=== PATIENT | male | born 1960 | race Caucasian/White ===

== ENCOUNTER 2023-09-24 13:35 | Emergency (ER) | payer BC ==
--- NOTE | 2023-09-24 14:08 | ERPHSYRPT ---
- History of Present Illness Time Seen by Provider: 09/24/23 14:08 Source: patient Exam Limitations: no limitations Physician History: The patient presents after a fall, landing directly on the side of his face and shoulder. He reports pain in the neck and shoulder, but denies any prior neck injuries. The patient describes the pain as intermittent, occurring with certain movements. He denies any weakness or pain with range of motion exercises. The patient also reports a sensation of 'something sitting on his chest' and a 'twisting' sensation between the shoulder blades. He denies any shortness of breath or chest pain. Occurred: just prior to arrival Reason for Fall: slipped Injuries/Pain Location: head, face, neck Loss of Consciousness: no loss of consciousness Quality: sharpness, throbbing Severity of Pain-Max: moderate Severity of Pain-Current: moderate Modifying Factors: Worsens With: movement Associated Symptoms (Fall): headache, neck pain, No confusion, No dizziness, No nausea, No ringing in ears, No slurred speech, No trouble walking, No vision changes Allergies/Adverse Reactions: Sulfa (Sulfonamide Antibiotics) Allergy (Mild, Verified 09/24/23 14:13) Rash morphine Adverse Reaction (Mild, Verified 09/24/23 14:13) Nausea Home Medications: Naproxen Sodium [Anaprox Ds] 550 mg PO DAILY PRN 09/07/13 [History] allopurinoL [Zyloprim] 300 mg PO DAILY 09/07/13 [History] Hx Tetanus, Diphtheria Vaccination/Date Given: Yes Hx Influenza Vaccination/Date Given: Yes (2014) Hx Pneumococcal Vaccination/Date Given: No - Review of Systems All Other Systems: Reviewed and Negative - Past Medical History Pertinent Past Medical History: Yes Neurological History: Other ENT History: Other Cardiac History: No Pertinent History Respiratory History: No Pertinent History Endocrine Medical History: No Pertinent History Musculoskeletal History: No Pertinent History GI Medical History: Other History: No Pertinent History Psycho-Social History: No Pertinent History Male Reproductive Disorders: No Pertinent History Other Medical History: L PHANTOM LIMB PAIN, FRACTURED L ANKLE IN HIGH SCHOOL, LATER HE STEPPED INTO A HOLE AND REINJURED THE LEG, EVENTUALLY DEVELOPED BONE NECROSIS. HE HAD 8-9 SURGERIES ON THE L LE. 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, no injury - Social History Smoking Status: Never smoker Exposure to second hand smoke: No Drug Use: none Patient Lives Alone: No - Nursing Vital Signs Nursing Vital Signs: Initial Vital Signs Blood Pressure 130/66 09/24/23 14:01 Pain Scale Pain Intensity 5 - [place] Coma Score Best Eye Response ([place]): (4) open spontaneously Best Verbal Response ([place]): (5) oriented Best Motor Response ([place]): (6) obeys commands [place] Total: 15 - Physical Exam General Appearance: no apparent distress Head Injury: lacerations (small superfical lac 1cm left zygomatic arch), tenderness Eye Exam: PERRL/EOMI, eyes nml inspection ENT Exam: airway nml, nml ext.inspection Neck Exam: supple, trachea midline, normal alignment, limited range of motion, muscle spasm, paraspinous muscle tender, pain on movement of neck, tender lateral, mid-line tenderness Respiratory/Chest Exam: normal breath sounds, No respiratory distress Neurologic Exam: alert, oriented x 3, cooperative, lead web developer II-XII nml as tested, normal mood/affect, nml cerebellar function, nml station & gait - Course Nursing assessment & vital signs reviewed: Yes - CT Exams Head CT Interpretation: Negative, Tele-radiologist Report Cervical Spine CT Interpretation: Tele-radiologist Report, No Fracture Maxillofacial Bones CT Interpretation: Tele-radiologist Report, Other (old spine of maxilla fracture) - Progress Progress: unchanged Medical Desision Making - Diagnostic Testing Diagnostic test were ordered, analyzed, and reviewed by me: Yes Radiological Interpretation: Interpreted by me, Reviewed by me, Teleradiologist Report - Risk of complications Low Risk: Low risk of morbidity from additional dx testing or treatment - Departure Departure Disposition: Home Clinical Impression: Fall, Facial trauma, Head trauma, Superficial laceration of face Condition: Good Critical Care Time: No Referrals: LEODAN URIARTE NP [Primary Care Provider] - Follow up/PCP as directed Instructions: Wound Care (DC), Head injury in adults
[2023-09-24 14:10] VITALS: TEMP 97
--- NOTE | 2023-09-24 16:24 | XRAY ---
Indication: Pain, headache, and abrasion following fall. Multiple contiguous axial images obtained through the head without contrast. Comparison: None Normal appearing brain parenchyma, ventricles, and bony calvarium for patient's age. Visualized paranasal sinuses and mastoid air cells are clear. Impression: Normal CT head without contrast exam.
--- NOTE | 2023-09-24 16:28 | XRAY ---
Indication: Pain, headache, and abrasion following fall. Multiple contiguous axial images obtained through the facial bones. Sagittal and coronal reformatted images obtained. Comparison: None A few bilateral dental implants produces beam artifact. Spine of maxilla demonstrates very tiny tip fracture of uncertain chronicity. No other acute fracture, suspicious bony lesions, or osseous destructive process. Orbits including roof, jaimes, and floors intact. Mild mucosal thickening right sphenoid and lesser degree right maxillary sinuses. Remaining paranasal sinuses and nasal passages are clear. Mild nasal septal deviation to the left. Visualized noncontrasted soft tissues are unremarkable. CT head and CT cervical spine reported separately. Impression: Beam artifact. Tiny tip fracture spine of maxilla of uncertain chronicity. Incidental mild paranasal sinus disease and mild nasal septal deviation. Remaining CT facial bones negative.
--- NOTE | 2023-09-24 16:36 | XRAY ---
Indication: Pain, headache, and abrasion following fall. Multiple contiguous axial images obtained through the cervical spine. Sagittal and coronal reformatted images obtained. Comparison: None Axial images negative for acute fracture, suspicious bony lesions, or spinal canal stenosis. Mild/moderate C5-C7 degenerative endplate spurring and mild/moderate multilevel bilateral degenerative facet hypertrophy. Sagittal and coronal reformatted images demonstrates minimal dextroscoliosis centered at C5 and C6-C7 disc space narrowing. No acute compression fracture, subluxation, or jumped facet. Normal appearing craniocervical junction. Visualized noncontrasted soft tissues demonstrates minimal right carotid calcifications. CT head and CT facial bones reported separately. Impression: Nonacute CT cervical spine with chronic features.
[2023-09-24 16:44] VITALS: BP 128/87; PULSE 76; RESP 16; O2SAT 98
== END 2023-09-24 16:48 | disposition home or self-care (01) ==
LOC: ED 13:35
DX: S01.412A Laceration without foreign body of left cheek and temporomandibular area, initial encounter (principal); S09.93XA Unspecified injury of face, initial encounter; S09.90XA Unspecified injury of head, initial encounter; W19.XXXA Unspecified fall, initial encounter; Z79.899 Other long term (current) drug therapy
CPT/HCPCS: 70450; 70486; 72125; 99283

== ENCOUNTER 2023-10-12 16:39 | Observation (INO) | payer BC ==
[2023-10-12] MEDS ORDERED: VANCOMYCIN 1 GRAM/200 ML BAG 1 GM/200 ML PIGGYBACK IV ONE (18:14)
[2023-10-12] MEDS ORDERED: Sodium Chloride 0.9% 1000 ML 1,000 ML ONE (18:14)
[2023-10-12] MEDS ORDERED: Tylenol #3 Tablet ONE (18:14)
[2023-10-12] MEDS: Tylenol #3 Tablet PO ONE (18:15)
[2023-10-12] MEDS ORDERED: PIPERACILLIN/TAZOBACTAM IV ONE ×2 (18:39→18:40)
[2023-10-12] MEDS ORDERED: Sodium Chloride 100ML MINI-BAG PLUS 100 ML IV ONE (18:40)
[2023-10-12 18:41] LABS: Lactic Acid 2.7 (0.4-2.0); VBG BASE EXCESS -3.6 (-2.0-2.0); VBG CARBOXYHEMOGLOBIN 2.3 % T HGB (0.0-6.9); VBG HCO3- 19.9 meq/L (22-28); VBG HEMOGLOBIN 10.9; VBG O2 SATURATION 68.3 (95-100); VBG POTASSIUM 3.3 (3.5-5.1); VBG pH 7.43 (7.32-7.42)
[2023-10-12] MEDS: VANCOMYCIN 1 GRAM/200 ML BAG 1 GM/200 ML PIGGYBACK IV ONE (18:42)
[2023-10-12] MEDS: PIPERACILLIN/TAZOBACTAM 3.375 GM in Sodium Chloride 100ML MINI-BAG PLUS 100 ML IV ONE (18:42)
[2023-10-12] MEDS: Sodium Chloride 0.9% 1000 ML 1,000 ML IV STA (18:43)
[2023-10-12 18:53] LABS: Absolute Neutrophil Ct (ANC) 11.01 x10^3/uL (1.78-5.38); BASOPHIL % 0.3 % (0.2-1.2); Basophil (Absolute #) 0.04 x10^3/uL (0.01-0.08); Eosinophil % 1.2 % (0.8-7.0); Eosinophil (Absolute #) 0.17 x10^3/uL (0.04-0.54); Hemoglobin 10.1 g/dL (13.7-17.5); IMMATURE GRAN % 2.1 % (0.001-0.429); Lymphocyte (Absolute #) 1.58 x10^3/uL (1.32-3.57); Lymphocytes % 11.2 % (21.8-53.1); Mean Corpuscular Hemoglobin 23.9 pg (25.7-32.2); Mean Corpuscular Hgb Concent. 30.6 g/dL (32.3-36.5); Mean Platelet Volume 9.3 fL (9.4-12.4); Monocyte (Absolute #) 0.96 x10^3/uL (0.30-0.82); Monocytes % 6.8 % (5.3-12.2); Neutrophil % 78.4 % (34.0-67.9); Platelet Count 618 x10^3/uL (163-337); Red Blood Count 4.23 x10^6/uL (4.63-6.08); Red Cell Distribution Width 16.6 % (11.6-14.4); White Blood Count 14.1 x10^3/uL (4.23-9.07)
[2023-10-12 19:04] LABS: ALBUMIN 3.1 g/dL (3.5-5.0); ANION GAP 14.4 MEQ/L (5-15); BILIRUBIN,TOTAL 0.5 mg/dL (0.2-1.3); Calcium 8.4 mg/dL (8.4-10.2); Creatinine 1 1.37 mg/dL (0.66-1.25); EST GLOMERULAR FILTRATION RATE 57.6 ML/MIN; Total Protein 6.5 g/dL (6.3-8.2)
[2023-10-12 19:21] LABS: Potassium 2.9 mmol/L (3.5-5.1)
--- NOTE | 2023-10-12 19:24 | ERPHSYRPT ---
- History of Present Illness Time Seen by Provider: 10/12/23 19:23 Patient Subjective Stated Complaint: C/O pain and swelling to RLE for 2-3 week Triage Nursing Assessment: Patient ambulated back to ER with a cane. He is alert and oriented. RLE is red, warm, swollen. Sore noted to sole of foot; patient states Dr. Villalobos is treating this. No SOB. Allergies/Adverse Reactions: Sulfa (Sulfonamide Antibiotics) Allergy (Mild, Verified 10/12/23 17:12) Rash morphine Adverse Reaction (Mild, Verified 10/12/23 17:12) Nausea Home Medications: Pregabalin 300 mg PO BID 10/12/23 [History] Hx Tetanus, Diphtheria Vaccination/Date Given: Yes Hx Influenza Vaccination/Date Given: No Hx Pneumococcal Vaccination/Date Given: No Immunizations Up to Date: Yes Travel Risk - International Travel Have you traveled outside of the country in past 3 weeks: No - Emerging Infectious Disease Are you exhibiting symptoms associated with any current EIDs: No - Past Medical History Pertinent Past Medical History: Yes Neurological History: Other ENT History: Other Cardiac History: No Pertinent History Respiratory History: No Pertinent History Endocrine Medical History: Diabetes Type II Musculoskeletal History: No Pertinent History GI Medical History: Other History: No Pertinent History Psycho-Social History: No Pertinent History Male Reproductive Disorders: No Pertinent History Other Medical History: L PHANTOM LIMB PAIN, [place]ARCOT - Past Surgical History Past Surgical History: Yes Neuro Surgical History: No Pertinent History Cardiac: No Pertinent History Respiratory: No Pertinent History Gastrointestinal: No Pertinent History Genitourinary: No Pertinent History Musculoskeletal: Amputation, Other Male Surgical History: No Pertinent History Other Surgical History: LEFT BKA - Social History Smoking Status: Never smoker Exposure to second hand smoke: No Drug Use: none Patient Lives Alone: No - Social Determinants of Health Will the patient participate in the screening: Declined to provide - Nursing Vital Signs Nursing Vital Signs: Initial Vital Signs Temperature 99 F 10/12/23 17:05 Pulse Rate 83 10/12/23 17:05 Respiratory Rate 24 10/12/23 17:05 Blood Pressure 120/78 10/12/23 17:05 O2 Sat by Pulse Oximetry 96 10/12/23 17:05 Pain Scale Pain Intensity 10 - Physical Exam SpO2: 100 Ordered Tests: Active Orders 24 hr Category Date Time Status IV Insertion STAT Care 10/12/23 18:08 Active IV Insertion-2nd Peripheral STAT Care 10/12/23 18:47 Active HEAD WITHOUT CONTRAST [CT] Stat Exams 10/12/23 18:11 Completed VENOUS UNILAT/LIMITED EXTREMIT [US] Stat Exams 10/12/23 18:07 Taken BLOOD CULTURE Stat Lab 10/12/23 18:50 Received CBC W DIFF Stat Lab 10/12/23 18:50 Completed CMP Stat Lab 10/12/23 18:50 Completed Lactic Acid Stat Lab 10/12/23 18:35 Completed PROCALCITONIN Stat Lab 10/12/23 18:50 Completed UA W/RFX UR CULTURE Stat Lab 10/12/23 18:08 Ordered VBG [VENOUS BLOOD GAS] Stat Lab 10/12/23 18:35 Completed Medication Summary Discontinued Medications Generic Name Dose Route Start Last Admin Trade Name Freq PRN Reason Stop Dose Admin Acetaminophen/Codeine Phosphate 2 tab 10/12/23 18:10 10/12/23 18:15 Codeine Phosphate/Apap #3 PO 10/12/23 18:11 2 tab STAT ONE Administration Acetaminophen/Codeine Phosphate Confirm 10/12/23 18:14 Codeine Phosphate/Apap #3 Administered 10/12/23 18:15 Dose 2 tab .ROUTE .STK-MED ONE Sodium Chloride 1,000 mls @ 999 mls/hr 10/12/23 18:08 10/12/23 19:44 Sodium Chloride 0.9% 1000 Ml IV 10/12/23 19:08 Infused .Q1H1M STA Infusion Piperacillin Sod/Tazobactam 100 mls @ 200 mls/hr 10/12/23 18:08 10/12/23 18:42 Sod 3.375 gm/ Sodium Chloride IV 10/12/23 18:37 200 mls/hr STAT ONE Administration Vancomycin HCl 1 gm in 200 mls @ 125 mls/hr 10/12/23 18:08 10/12/23 20:18 Vancomycin 1 Gram/200 Ml Bag IV 10/12/23 19:43 Infused STAT ONE Infusion Sodium Chloride Confirm 10/12/23 18:14 Sodium Chloride 0.9% 1000 Ml Administered 10/12/23 18:15 Dose 1,000 mls @ ud .ROUTE .STK-MED ONE Vancomycin HCl Confirm 10/12/23 18:14 Vancomycin 1 Gram/200 Ml Bag Administered 10/12/23 18:15 Dose 1 gm in 200 mls @ ud IV .STK-MED ONE Sodium Chloride Confirm 10/12/23 18:40 Sodium Chloride 100ml Mini-Bag Plus Administered 10/12/23 18:41 Dose 100 mls @ ud IV .STK-MED ONE Piperacillin Sod/Tazobactam Sod Confirm 10/12/23 18:39 Piperacillin/Tazobactam Sodium 3.375 Gm Vial Administered 10/12/23 18:40 Dose 3.375 gm IV .STK-MED ONE Piperacillin Sod/Tazobactam Sod Confirm 10/12/23 18:40 Piperacillin/Tazobactam Sodium 3.375 Gm Vial Administered 10/12/23 18:41 Dose 3.375 gm IV .STK-MED ONE Potassium Chloride 40 meq 10/12/23 19:23 10/12/23 19:42 Potassium Chloride Tab 10 Meq Tab PO 10/12/23 19:24 40 meq STAT ONE Administration Potassium Chloride Confirm 10/12/23 19:38 Potassium Chloride Tab 10 Meq Tab Administered 10/12/23 19:39 Dose 40 meq .ROUTE .STK-MED ONE Lab/Rad Data: Laboratory Result Diagrams 10/12/23 18:50 10/12/23 18:50 Laboratory Results 10/12/23 10/12/23 10/12/23 Range/Units 18:50 18:50 18:50 WBC 14.1 H (4.23-9.07) x10^3/uL RBC 4.23 L (4.63-6.08) x10^6/uL Hgb 10.1 L (13.7-17.5) g/dL Hct 33.0 L (40.1-51.0) % MCV 78.0 L (79.0-92.2) fL MCH 23.9 L (25.7-32.2) pg MCHC 30.6 L (32.3-36.5) g/dL RDW 16.6 H (11.6-14.4) % Plt Count 618 H (163-337) x10^3/uL MPV 9.3 L (9.4-12.4) fL Gran % 78.4 H (34.0-67.9) % Immature Gran % (Auto) 2.1 H (0.001-0.429) % Nucleat RBC Rel Count 0.0 (0.00-0.2) % Eos # (Auto) 0.17 (0.04-0.54) x10^3/uL Immature Gran # (Auto) 0.30 H (0.001-0.031) x10^3u/L Absolute Lymphs (auto) 1.58 (1.32-3.57) x10^3/uL Absolute Monos (auto) 0.96 H (0.30-0.82) x10^3/uL Absolute Nucleated RBC 0.00 (0.00-0.012) x10^3u/L Lymphocytes % 11.2 L (21.8-53.1) % Monocytes % 6.8 (5.3-12.2) % Eosinophils % 1.2 (0.8-7.0) % Basophils % 0.3 (0.2-1.2) % Absolute Granulocytes 11.01 H (1.78-5.38) x10^3/uL Basophils # 0.04 (0.01-0.08) x10^3/uL pO2/FiO2 Ratio % VBG pH (7.32-7.42) VBG pCO2 at Pat Temp (42-55) mm/Hg VBG pO2 at Pat Temp (25-40) mm/Hg VBG HCO3 (22-28) meq/L VBG O2 Sat ([place]use[place]in) (95-100) VBG Base Excess (-2.0-2.0) VBG Hemoglobin VBG Carboxyhemoglobin (0.0-6.9) % T HGB POC Potassium (3.5-5.1) Sodium 137 (135-145) mmol/L Potassium 2.9 L* (3.5-5.1) mmol/L Chloride 106 (98-107) mmol/L Carbon Dioxide 19 L (22-30) mmol/L Anion Gap 14.4 (5-15) MEQ/L BUN 19 (9-20) mg/dL Creatinine 1.37 H (0.66-1.25) mg/dL Estimated GFR 57.6 ML/MIN Glucose 138 H (74-106) mg/dL Lactic Acid (0.4-2.0) Calcium 8.4 (8.4-10.2) mg/dL Total Bilirubin 0.50 (0.2-1.3) mg/dL AST 64 H (17-59) U/L ALT 41 (0-50) U/L Alkaline Phosphatase 256 H (38-126) U/L Serum Total Protein 6.5 (6.3-8.2) g/dL Albumin 3.1 L (3.5-5.0) g/dL Procalcitonin 0.590 H (0.030-0.080) ng/mL 10/12/23 Range/Units 18:35 WBC (4.23-9.07) x10^3/uL RBC (4.63-6.08) x10^6/uL Hgb (13.7-17.5) g/dL Hct (40.1-51.0) % MCV (79.0-92.2) fL MCH (25.7-32.2) pg MCHC (32.3-36.5) g/dL RDW (11.6-14.4) % Plt Count (163-337) x10^3/uL MPV (9.4-12.4) fL Gran % (34.0-67.9) % Immature Gran % (Auto) (0.001-0.429) % Nucleat RBC Rel Count (0.00-0.2) % Eos # (Auto) (0.04-0.54) x10^3/uL Immature Gran # (Auto) (0.001-0.031) x10^3u/L Absolute Lymphs (auto) (1.32-3.57) x10^3/uL Absolute Monos (auto) (0.30-0.82) x10^3/uL Absolute Nucleated RBC (0.00-0.012) x10^3u/L Lymphocytes % (21.8-53.1) % Monocytes % (5.3-12.2) % Eosinophils % (0.8-7.0) % Basophils % (0.2-1.2) % Absolute Granulocytes (1.78-5.38) x10^3/uL Basophils # (0.01-0.08) x10^3/uL pO2/FiO2 Ratio 21.0 % VBG pH 7.43 H (7.32-7.42) VBG pCO2 at Pat Temp 30 L (42-55) mm/Hg VBG pO2 at Pat Temp 39 (25-40) mm/Hg VBG HCO3 19.9 L (22-28) meq/L VBG O2 Sat ([place]in) 68.3 L (95-100) VBG Base Excess -3.6 L (-2.0-2.0) VBG Hemoglobin 10.9 VBG Carboxyhemoglobin 2.3 (0.0-6.9) % T HGB POC Potassium 3.3 L (3.5-5.1) Sodium (135-145) mmol/L Potassium (3.5-5.1) mmol/L Chloride (98-107) mmol/L Carbon Dioxide (22-30) mmol/L Anion Gap (5-15) MEQ/L BUN (9-20) mg/dL Creatinine (0.66-1.25) mg/dL Estimated GFR ML/MIN Glucose (74-106) mg/dL Lactic Acid 2.7 H (0.4-2.0) Calcium (8.4-10.2) mg/dL Total Bilirubin (0.2-1.3) mg/dL AST (17-59) U/L ALT (0-50) U/L Alkaline Phosphatase (38-126) U/L Serum Total Protein (6.3-8.2) g/dL Albumin (3.5-5.0) g/dL Procalcitonin (0.030-0.080) ng/mL - Progress Progress Note: 10/12/23 19:24 I assumed care for pt from Dr Vaughn at 1900. 10/12/23 19:53 CT head: Unremarkable non-contrast enhanced CT study for the brain. No evidence of post-traumatic lesion. 10/12/23 19:53 lower extremity duplex US reportedly negative for DVT 10/12/23 20:25 discussed admission w/ Dr Murray who is willing to accept 20:25 - Departure Referrals: LEODAN URIARTE NP [Primary Care Provider] - Follow up/PCP as directed
--- NOTE | 2023-10-12 19:27 | ERPHSYRPT ---
- History of Present Illness Source: patient Exam Limitations: no limitations Patient Subjective Stated Complaint: C/O pain and swelling to RLE for 2-3 week Triage Nursing Assessment: Patient ambulated back to ER with a cane. He is alert and oriented. RLE is red, warm, swollen. Sore noted to sole of foot; patient states Dr. Villalobos is treating this. No SOB. Timing/Duration: week(s) Quality: painful Severity: moderate Location: extremities (RLE) Possible Causes: no cause identified Associated Symptoms: change in skin texture, edema, No blisters, No difficulty breathing, No fever, No rash Hx Tetanus, Diphtheria Vaccination/Date Given: Yes Hx Influenza Vaccination/Date Given: No Hx Pneumococcal Vaccination/Date Given: No Immunizations Up to Date: Yes <BEE KLEIN - Last Filed: 10/12/23 19:22> <PAYTON LI - Last Filed: 10/12/23 20:28> - History of Present Illness Time Seen by Provider: 10/12/23 18:30 Physician History: The patient, with a history of head trauma and an infected foot, presents with cognitive issues and concerns about his foot. He reports periods of confusion and difficulty with word recall since the head trauma. He describes instances at work where he was unable to recall his own name. He also reports a loss of appetite and dizziness. He has been taking Longerra (7.5mg) for an unspecified condition, but believes the dose may be too high. Regarding his foot, the patient reports a history of infection, with weeping for the past couple of weeks and swelling for about a month. He was on IV antibiotics, which he stopped about a week ago. He also has a history of a fused ankle, which has resulted in him walking on the outside of his foot and developing a callus. (BEE KLEIN) Allergies/Adverse Reactions: Sulfa (Sulfonamide Antibiotics) Allergy (Mild, Verified 10/12/23 17:12) Rash morphine Adverse Reaction (Mild, Verified 10/12/23 17:12) Nausea Home Medications: Pregabalin 300 mg PO BID 10/12/23 [History] Travel Risk - International Travel Have you traveled outside of the country in past 3 weeks: No - Emerging Infectious Disease Are you exhibiting symptoms associated with any current EIDs: No <BEE KLEIN - Last Filed: 10/12/23 19:22> - Review of Systems All Other Systems: Reviewed and Negative <BEE KLEIN - Last Filed: 10/12/23 19:22> - Past Medical History Pertinent Past Medical History: Yes Neurological History: Other ENT History: Other Cardiac History: No Pertinent History Respiratory History: No Pertinent History Endocrine Medical History: Diabetes Type II Musculoskeletal History: No Pertinent History GI Medical History: Other History: No Pertinent History Psycho-Social History: No Pertinent History Male Reproductive Disorders: No Pertinent History Other Medical History: L PHANTOM LIMB PAIN, CHARCOT - Past Surgical History Past Surgical History: Yes Neuro Surgical History: No Pertinent History Cardiac: No Pertinent History Respiratory: No Pertinent History Gastrointestinal: No Pertinent History Genitourinary: No Pertinent History Musculoskeletal: Amputation, Other Male Surgical History: No Pertinent History Other Surgical History: LEFT BKA - Social History Smoking Status: Never smoker Exposure to second hand smoke: No Drug Use: none Patient Lives Alone: No - Social Determinants of Health Will the patient participate in the screening: Declined to provide <BEE KLEIN - Last Filed: 10/12/23 19:22> - Physical Exam General Appearance: no apparent distress Eye Exam: eyes nml inspection Ears, Nose, Throat Exam: normal ENT inspection Neck Exam: normal inspection, supple, full range of motion Respiratory Exam: lungs clear, No respiratory distress Cardiovascular Exam: regular rate/rhythm, normal heart sounds, capillary refill <2 sec, edema (RLE) Extremity Exam: amputations (LLE), calf tenderness, inflammation, swelling, tenderness Neurologic Exam: alert, oriented x 3, cooperative Skin Exam: other (erythema RLE) SpO2 Interpretation: normal SpO2: 100 O2 Delivery: Room Air <BEE KLEIN - Last Filed: 10/12/23 19:22> - Nursing Vital Signs Nursing Vital Signs: Initial Vital Signs Temperature 99 F 10/12/23 17:05 Pulse Rate 83 10/12/23 17:05 Respiratory Rate 24 10/12/23 17:05 Blood Pressure 120/78 10/12/23 17:05 O2 Sat by Pulse Oximetry 96 10/12/23 17:05 Pain Scale Pain Intensity 10 - Course Nursing assessment & vital signs reviewed: Yes <BEE KLEIN - Last Filed: 10/12/23 19:22> Ordered Tests: Active Orders 24 hr Category Date Time Status IV Insertion STAT Care 10/12/23 18:08 Active IV Insertion-2nd Peripheral STAT Care 10/12/23 18:47 Active HEAD WITHOUT CONTRAST [CT] Stat Exams 10/12/23 18:11 Completed VENOUS UNILAT/LIMITED EXTREMIT [US] Stat Exams 10/12/23 18:07 Taken BLOOD CULTURE Stat Lab 10/12/23 18:50 Received CBC W DIFF Stat Lab 10/12/23 18:50 Completed CMP Stat Lab 10/12/23 18:50 Completed Lactic Acid Stat Lab 10/12/23 18:35 Completed PROCALCITONIN Stat Lab 10/12/23 18:50 Completed UA W/RFX UR CULTURE Stat Lab 10/12/23 18:08 Ordered VBG [VENOUS BLOOD GAS] Stat Lab 10/12/23 18:35 Completed Medication Summary Discontinued Medications Generic Name Dose Route Start Last Admin Trade Name Freq PRN Reason Stop Dose Admin Acetaminophen/Codeine Phosphate 2 tab 10/12/23 18:10 10/12/23 18:15 Codeine Phosphate/Apap #3 PO 10/12/23 18:11 2 tab STAT ONE Administration Acetaminophen/Codeine Phosphate Confirm 10/12/23 18:14 Codeine Phosphate/Apap #3 Administered 10/12/23 18:15 Dose 2 tab .ROUTE .STK-MED ONE Sodium Chloride 1,000 mls @ 999 mls/hr 10/12/23 18:08 10/12/23 19:44 Sodium Chloride 0.9% 1000 Ml IV 10/12/23 19:08 Infused .Q1H1M STA Infusion Piperacillin Sod/Tazobactam 100 mls @ 200 mls/hr 10/12/23 18:08 10/12/23 18:42 Sod 3.375 gm/ Sodium Chloride IV 10/12/23 18:37 200 mls/hr STAT ONE Administration Vancomycin HCl 1 gm in 200 mls @ 125 mls/hr 10/12/23 18:08 10/12/23 20:18 Vancomycin 1 Gram/200 Ml Bag IV 10/12/23 19:43 Infused STAT ONE Infusion Sodium Chloride Confirm 10/12/23 18:14 Sodium Chloride 0.9% 1000 Ml Administered 10/12/23 18:15 Dose 1,000 mls @ ud .ROUTE .STK-MED ONE Vancomycin HCl Confirm 10/12/23 18:14 Vancomycin 1 Gram/200 Ml Bag Administered 10/12/23 18:15 Dose 1 gm in 200 mls @ ud IV .STK-MED ONE Sodium Chloride Confirm 10/12/23 18:40 Sodium Chloride 100ml Mini-Bag Plus Administered 10/12/23 18:41 Dose 100 mls @ ud IV .STK-MED ONE Piperacillin Sod/Tazobactam Sod Confirm 10/12/23 18:39 Piperacillin/Tazobactam Sodium 3.375 Gm Vial Administered 10/12/23 18:40 Dose 3.375 gm IV .STK-MED ONE Piperacillin Sod/Tazobactam Sod Confirm 10/12/23 18:40 Piperacillin/Tazobactam Sodium 3.375 Gm Vial Administered 10/12/23 18:41 Dose 3.375 gm IV .STK-MED ONE Potassium Chloride 40 meq 10/12/23 19:23 10/12/23 19:42 Potassium Chloride Tab 10 Meq Tab PO 10/12/23 19:24 40 meq STAT ONE Administration Potassium Chloride Confirm 10/12/23 19:38 Potassium Chloride Tab 10 Meq Tab Administered 10/12/23 19:39 Dose 40 meq .ROUTE .STK-MED ONE Lab/Rad Data: Laboratory Result Diagrams 10/12/23 18:50 10/12/23 18:50 Laboratory Results 10/12/23 10/12/23 10/12/23 Range/Units 18:50 18:50 18:50 WBC 14.1 H (4.23-9.07) x10^3/uL RBC 4.23 L (4.63-6.08) x10^6/uL Hgb 10.1 L (13.7-17.5) g/dL Hct 33.0 L (40.1-51.0) % MCV 78.0 L (79.0-92.2) fL MCH 23.9 L (25.7-32.2) pg MCHC 30.6 L (32.3-36.5) g/dL RDW 16.6 H (11.6-14.4) % Plt Count 618 H (163-337) x10^3/uL MPV 9.3 L (9.4-12.4) fL Gran % 78.4 H (34.0-67.9) % Immature Gran % (Auto) 2.1 H (0.001-0.429) % Nucleat RBC Rel Count 0.0 (0.00-0.2) % Eos # (Auto) 0.17 (0.04-0.54) x10^3/uL Immature Gran # (Auto) 0.30 H (0.001-0.031) x10^3u/L Absolute Lymphs (auto) 1.58 (1.32-3.57) x10^3/uL Absolute Monos (auto) 0.96 H (0.30-0.82) x10^3/uL Absolute Nucleated RBC 0.00 (0.00-0.012) x10^3u/L Lymphocytes % 11.2 L (21.8-53.1) % Monocytes % 6.8 (5.3-12.2) % Eosinophils % 1.2 (0.8-7.0) % Basophils % 0.3 (0.2-1.2) % Absolute Granulocytes 11.01 H (1.78-5.38) x10^3/uL Basophils # 0.04 (0.01-0.08) x10^3/uL pO2/FiO2 Ratio % VBG pH (7.32-7.42) VBG pCO2 at Pat Temp (42-55) mm/Hg VBG pO2 at Pat Temp (25-40) mm/Hg VBG HCO3 (22-28) meq/L VBG O2 Sat (Huseyin) (95-100) VBG Base Excess (-2.0-2.0) VBG Hemoglobin VBG Carboxyhemoglobin (0.0-6.9) % T HGB POC Potassium (3.5-5.1) Sodium 137 (135-145) mmol/L Potassium 2.9 L* (3.5-5.1) mmol/L Chloride 106 (98-107) mmol/L Carbon Dioxide 19 L (22-30) mmol/L Anion Gap 14.4 (5-15) MEQ/L BUN 19 (9-20) mg/dL Creatinine 1.37 H (0.66-1.25) mg/dL Estimated GFR 57.6 ML/MIN Glucose 138 H (74-106) mg/dL Lactic Acid (0.4-2.0) Calcium 8.4 (8.4-10.2) mg/dL Total Bilirubin 0.50 (0.2-1.3) mg/dL AST 64 H (17-59) U/L ALT 41 (0-50) U/L Alkaline Phosphatase 256 H (38-126) U/L Serum Total Protein 6.5 (6.3-8.2) g/dL Albumin 3.1 L (3.5-5.0) g/dL Procalcitonin 0.590 H (0.030-0.080) ng/mL 10/12/23 Range/Units 18:35 WBC (4.23-9.07) x10^3/uL RBC (4.63-6.08) x10^6/uL Hgb (13.7-17.5) g/dL Hct (40.1-51.0) % MCV (79.0-92.2) fL MCH (25.7-32.2) pg MCHC (32.3-36.5) g/dL RDW (11.6-14.4) % Plt Count (163-337) x10^3/uL MPV (9.4-12.4) fL Gran % (34.0-67.9) % Immature Gran % (Auto) (0.001-0.429) % Nucleat RBC Rel Count (0.00-0.2) % Eos # (Auto) (0.04-0.54) x10^3/uL Immature Gran # (Auto) (0.001-0.031) x10^3u/L Absolute Lymphs (auto) (1.32-3.57) x10^3/uL Absolute Monos (auto) (0.30-0.82) x10^3/uL Absolute Nucleated RBC (0.00-0.012) x10^3u/L Lymphocytes % (21.8-53.1) % Monocytes % (5.3-12.2) % Eosinophils % (0.8-7.0) % Basophils % (0.2-1.2) % Absolute Granulocytes (1.78-5.38) x10^3/uL Basophils # (0.01-0.08) x10^3/uL pO2/FiO2 Ratio 21.0 % VBG pH 7.43 H (7.32-7.42) VBG pCO2 at Pat Temp 30 L (42-55) mm/Hg VBG pO2 at Pat Temp 39 (25-40) mm/Hg VBG HCO3 19.9 L (22-28) meq/L VBG O2 Sat (Huseyin) 68.3 L (95-100) VBG Base Excess -3.6 L (-2.0-2.0) VBG Hemoglobin 10.9 VBG Carboxyhemoglobin 2.3 (0.0-6.9) % T HGB POC Potassium 3.3 L (3.5-5.1) Sodium (135-145) mmol/L Potassium (3.5-5.1) mmol/L Chloride (98-107) mmol/L Carbon Dioxide (22-30) mmol/L Anion Gap (5-15) MEQ/L BUN (9-20) mg/dL Creatinine (0.66-1.25) mg/dL Estimated GFR ML/MIN Glucose (74-106) mg/dL Lactic Acid 2.7 H (0.4-2.0) Calcium (8.4-10.2) mg/dL Total Bilirubin (0.2-1.3) mg/dL AST (17-59) U/L ALT (0-50) U/L Alkaline Phosphatase (38-126) U/L Serum Total Protein (6.3-8.2) g/dL Albumin (3.5-5.0) g/dL Procalcitonin (0.030-0.080) ng/mL - Progress Progress: unchanged Counseled pt/family regarding: lab results, diagnosis, need for follow-up, rad results <BEE KLEIN - Last Filed: 10/12/23 19:22> - Progress Will see patient in: hospital (observation) Counseled pt/family regarding: lab results, diagnosis, need for follow-up, rad results <PAYTON LI - Last Filed: 10/12/23 20:28> - Progress Progress Note: Charcot Foot with suspected infection: Chronic swelling with recent onset of weeping. No reported fever. Patient has palpable pulses in the foot. -Order labs to assess for systemic infection. -Start empiric antibiotics. -Order blood cultures. -Order ultrasound of the right leg to rule out deep vein thrombosis. Cognitive impairment: Recent head injury with subsequent episodes of confusion, difficulty with word finding, and decreased appetite. Patient was on Mounjaro (likely Memantine) 7.5mg, which was stopped due to suspected side effects. -Consider restarting Memantine at a lower dose (2.5mg) once infection is controlled. -Consider CT scan of the head to rule out subdural hematoma, although symptoms are more likely due to infection. Ultrasound of the right lower extremity was negative for DVT. Care transitioned over to Dr. Li at 1900 (BEE KLIEN) 10/12/23 20:27 I assumed care for pt from Dr Klein at 1900. 10/12/23 19:53 CT head: Unremarkable non-contrast enhanced CT study for the brain. No evidence of post-traumatic lesion. 10/12/23 19:53 lower extremity duplex US reportedly negative for DVT 10/12/23 20:25 discussed admission w/ Dr Murray who is willing to accept 20:25 (PAYTON LI) Medical Desision Making - Diagnostic Testing Diagnostic test were ordered, analyzed, and reviewed by me: Yes Radiological Interpretation: Interpreted by me, Reviewed by me, Teleradiologist Report - Risk of complications The pt has a mod risk of morbidity or mortality based on: Need for prescription drug management <BEE KLEIN - Last Filed: 10/12/23 19:22> - Discussion of managment Care discussed with:: hospitalist Reviewed:: Test results, Need for additional workup Agreed on:: Treatment plan, place in obs Will see patient: in hospital - Risk of complications The pt has a high risk of morbidity or mortality based on: Decision regarding hospitilization or escalation of hosp level of care <PAYTON LI - Last Filed: 10/12/23 20:28> <BEE KLEIN - Last Filed: 10/12/23 19:22> - Departure Departure Disposition: Observation Critical Care Time: No <PAYTON LI - Last Filed: 10/12/23 20:28> - Departure Clinical Impression: Cellulitis of right lower extremity, Hypokalemia Leukocytosis Qualifiers: Leukocytosis type: unspecified Qualified Code(s): D72.829 - Elevated white blood cell count, unspecified Condition: Stable Referrals: LEODAN URIARTE NP [Primary Care Provider] - Follow up/PCP as directed
[2023-10-12] MEDS ORDERED: Klor Con ONE (19:38)
[2023-10-12] MEDS: Klor Con PO ONE (19:42)
--- NOTE | 2023-10-12 19:48 | XRAY ---
CLINICAL HISTORY: headache, confusion, fall COMPARISON: None. TECHNIQUE: Axial [id number] CT scan of the brain was performed from the skull base to the high parietal region. One of the following dose reduction techniques was utilized for this exam.Automated exposure control, adjustment of the mA and/or kV according to patient size, and use of iterative reconstruction. FINDINGS: The visualized brain parenchyma shows a normal appearance. No focal parenchymal abnormalities are demonstrated. Ram-white matter differentiation is maintained. No midline shifts or deformity. No intracerebral or extra axial hematoma. Normal configuration of the cerebral ventricles for age. Mild enlargement of the lateral ventricles. Mild prominence of the cortical sulci and basal cisterns. Normal CT appearance of the posterior fossa structures namely the cerebellar hemispheres, brainstem and cerebellar peduncles. The IACs are unremarkable. The cerebello-pontine angles are clear. The pituitary gland, the pineal gland, the optic chiasm is unremarkable. The osseous structures in the skull base are unremarkable. No definite calvarium fractures. Right sphenoidal sinusitis. The rest of the scanned paranasal sinuses are clear. Carotid siphon calcifications. IMPRESSION: Unremarkable non-contrast enhanced CT study for the brain. No evidence of post-traumatic lesion. Electronically Signed by: Liliana Alvarez MD. (10/12/2023 19:44:23 EDT)
--- NOTE | 2023-10-12 21:11 | PCM.HP ---
History of Present Illness - Chief Complaint Chief Complaint: cellulitis Date: 10/12/23 History of Present Illness: Mr. OTILIA CHAPIN is a 63 year old male with a past medical history significant for hypertension, diabetes and PAD status post L BKA who presents with complaints of RLE swelling for about two weeks. He took oral antibiotics without much improvement and comes back with pain and redness around his R foot/leg. He is unable to recall if he had any trauma or triggers to the infection. No fever/chills. No drainage from his foot/leg. He is resting in bed, awake/alert, hoping to go home tomorrow so he can return to work on Saturday. No chest pain or shortness of breath. No nausea, vomiting or diarrhea. No dysuria, hematuria or urinary frequency. Venous doppler negative for DVT but he is unsure how his circulation is. - Review of Systems Constitutional: No Fever, No Chills Eyes: No Vision Changes Ears, Nose, & Throat: No Sinus Drainage Respiratory: No Cough, No Orthopnea, No Short Of Breath Cardiac: Edema, No Chest Pain, No Palpitations Abdominal/Gastrointestinal: No Abdominal Pain, No Nausea, No Vomiting, No Diarrhea Genitourinary Symptoms: No Dysuria, No Frequency, No Hematuria Musculoskeletal: No Back Pain Skin: Cellulitis, Induration, Pruritis, Rash Neurological: No Focal Weakness Psychological: No Suicidal Ideations Endocrine: No Polyuria, No Polydipsia Medications & Allergies Home Medications: Home Medication List Pregabalin 300 mg PO BID 10/12/23 [History Confirmed 10/12/23] Allergies/Adverse Reactions: Allergies Allergy/AdvReac Type Severity Reaction Status Date / Time Sulfa (Sulfonamide Allergy Mild Rash Verified 10/12/23 17:12 Antibiotics) morphine AdvReac Mild Nausea Verified 10/12/23 17:12 - Past Medical History Past Medical History: Yes Neurological History: Other ENT History: Other Cardiac History: No Pertinent History Respiratory History: No Pertinent History Endocrine Medical History: Diabetes Type II Musculoskelatal History: No Pertinent History GI Medical History: Other History: No Pertinent History Pyscho-Social History: No Pertinent History Male Reproductive Disorders: No Pertinent History Comment: L PHANTOM LIMB PAIN, CHARCOT - Past Surgical History Past Surgical History: Yes Neuro Surgical History: No Pertinent History Cardiac History: No Pertinent History Respiratory Surgery: No Pertinent History GI Surgical History: No Pertinent History Genitourinary Surgical Hx: No Pertinent History Musculskeletal Surgical Hx: Amputation, Other Male Surgical History: No Pertinent History Other Surgical History: LEFT BKA - Social History Smoking Status: Never smoker Exposure to second hand smoke: No Alcohol: None Drug Use: none - Social Determinants of Health Will the patient participate in the screening: Declined to provide - Physical Exam Vital Signs: Vital Signs - 24 hr Temp Pulse Resp BP BP Pulse Ox 10/12/23 19:26 100 10/12/23 18:00 81 28 H 121/79 10/12/23 17:30 82 21 138/74 10/12/23 17:11 81 33 H 120/78 100 10/12/23 17:05 99 F 83 24 120/78 96 General Appearance: no apparent distress Neurologic Exam: alert, oriented x 3 Ears, Nose, Throat Exam: dry mucous membranes Neck Exam: supple Respiratory Exam: No respiratory distress Cardiovascular Exam: regular rate/rhythm Gastrointestinal/Abdomen Exam: soft Extremity Exam: No pedal edema, No swelling Skin Exam: normal color, No rash Results - Labs Lab/Micro Results: Lab Results-Last 24 Hours 10/12/23 10/12/23 10/12/23 Range/Units 18:35 18:50 18:50 WBC 14.1 H (4.23-9.07) x10^3/uL RBC 4.23 L (4.63-6.08) x10^6/uL Hgb 10.1 L (13.7-17.5) g/dL Hct 33.0 L (40.1-51.0) % MCV 78.0 L (79.0-92.2) fL MCH 23.9 L (25.7-32.2) pg MCHC 30.6 L (32.3-36.5) g/dL RDW 16.6 H (11.6-14.4) % Plt Count 618 H (163-337) x10^3/uL MPV 9.3 L (9.4-12.4) fL Gran % 78.4 H (34.0-67.9) % Immature Gran % (Auto) 2.1 H (0.001-0.429) % Nucleat RBC Rel Count 0.0 (0.00-0.2) % Eos # (Auto) 0.17 (0.04-0.54) x10^3/uL Immature Gran # (Auto) 0.30 H (0.001-0.031) x10^3u/L Absolute Lymphs (auto) 1.58 (1.32-3.57) x10^3/uL Absolute Monos (auto) 0.96 H (0.30-0.82) x10^3/uL Absolute Nucleated RBC 0.00 (0.00-0.012) x10^3u/L Lymphocytes % 11.2 L (21.8-53.1) % Monocytes % 6.8 (5.3-12.2) % Eosinophils % 1.2 (0.8-7.0) % Basophils % 0.3 (0.2-1.2) % Absolute Granulocytes 11.01 H (1.78-5.38) x10^3/uL Basophils # 0.04 (0.01-0.08) x10^3/uL pO2/FiO2 Ratio 21.0 % VBG pH 7.43 H (7.32-7.42) VBG pCO2 at Pat Temp 30 L (42-55) mm/Hg VBG pO2 at Pat Temp 39 (25-40) mm/Hg VBG HCO3 19.9 L (22-28) meq/L VBG O2 Sat (Huseyin) 68.3 L (95-100) VBG Base Excess -3.6 L (-2.0-2.0) VBG Hemoglobin 10.9 VBG Carboxyhemoglobin 2.3 (0.0-6.9) % T HGB POC Potassium 3.3 L (3.5-5.1) Sodium 137 (135-145) mmol/L Potassium 2.9 L* (3.5-5.1) mmol/L Chloride 106 (98-107) mmol/L Carbon Dioxide 19 L (22-30) mmol/L Anion Gap 14.4 (5-15) MEQ/L BUN 19 (9-20) mg/dL Creatinine 1.37 H (0.66-1.25) mg/dL Estimated GFR 57.6 ML/MIN Glucose 138 H (74-106) mg/dL Lactic Acid 2.7 H (0.4-2.0) Calcium 8.4 (8.4-10.2) mg/dL Total Bilirubin 0.50 (0.2-1.3) mg/dL AST 64 H (17-59) U/L ALT 41 (0-50) U/L Alkaline Phosphatase 256 H (38-126) U/L Serum Total Protein 6.5 (6.3-8.2) g/dL Albumin 3.1 L (3.5-5.0) g/dL Procalcitonin (0.030-0.080) ng/mL 10/12/23 Range/Units 18:50 WBC (4.23-9.07) x10^3/uL RBC (4.63-6.08) x10^6/uL Hgb (13.7-17.5) g/dL Hct (40.1-51.0) % MCV (79.0-92.2) fL MCH (25.7-32.2) pg MCHC (32.3-36.5) g/dL RDW (11.6-14.4) % Plt Count (163-337) x10^3/uL MPV (9.4-12.4) fL Gran % (34.0-67.9) % Immature Gran % (Auto) (0.001-0.429) % Nucleat RBC Rel Count (0.00-0.2) % Eos # (Auto) (0.04-0.54) x10^3/uL Immature Gran # (Auto) (0.001-0.031) x10^3u/L Absolute Lymphs (auto) (1.32-3.57) x10^3/uL Absolute Monos (auto) (0.30-0.82) x10^3/uL Absolute Nucleated RBC (0.00-0.012) x10^3u/L Lymphocytes % (21.8-53.1) % Monocytes % (5.3-12.2) % Eosinophils % (0.8-7.0) % Basophils % (0.2-1.2) % Absolute Granulocytes (1.78-5.38) x10^3/uL Basophils # (0.01-0.08) x10^3/uL pO2/FiO2 Ratio % VBG pH (7.32-7.42) VBG pCO2 at Pat Temp (42-55) mm/Hg VBG pO2 at Pat Temp (25-40) mm/Hg VBG HCO3 (22-28) meq/L VBG O2 Sat (Huseyin) (95-100) VBG Base Excess (-2.0-2.0) VBG Hemoglobin VBG Carboxyhemoglobin (0.0-6.9) % T HGB POC Potassium (3.5-5.1) Sodium (135-145) mmol/L Potassium (3.5-5.1) mmol/L Chloride (98-107) mmol/L Carbon Dioxide (22-30) mmol/L Anion Gap (5-15) MEQ/L BUN (9-20) mg/dL Creatinine (0.66-1.25) mg/dL Estimated GFR ML/MIN Glucose (74-106) mg/dL Lactic Acid (0.4-2.0) Calcium (8.4-10.2) mg/dL Total Bilirubin (0.2-1.3) mg/dL AST (17-59) U/L ALT (0-50) U/L Alkaline Phosphatase (38-126) U/L Serum Total Protein (6.3-8.2) g/dL Albumin (3.5-5.0) g/dL Procalcitonin 0.590 H (0.030-0.080) ng/mL - Radiology Impressions Radiology Exams & Impressions: Radiology Procedures Category Date Time Status HEAD WITHOUT CONTRAST [CT] Stat Exams 10/12/23 18:11 Completed VENOUS UNILAT/LIMITED EXTREMIT [US] Stat Exams 10/12/23 18:07 Taken Assessment/Plan (1) Cellulitis of right lower extremity Current Visit: Yes Status: Acute Assessment & Plan: Likely from inadequate antibiotics but should really evaluate circulation for PAD 1. Empiric antibiotics with Vanc/Zosyn for broad spectrum coverage 2. Arterial doppler RLE 3. DVT prophylaxis 4. Monitor erythema 5. Pain control Code(s): L03.115 - CELLULITIS OF RIGHT LOWER LIMB (2) Hx of left BKA Current Visit: Yes Status: Acute Code(s): Z89.512 - ACQUIRED ABSENCE OF LEFT LEG BELOW KNEE (3) Acute kidney injury (nontraumatic) Current Visit: Yes Status: Acute Assessment & Plan: Creatinine elevated at 1.4 likely from prerenal azotemia 1. Trial of IVFs 2. Check urine lytes, urine creatinine 3. Follow I/Os 4. Watch electrolytes, creatinine closely Code(s): N17.9 - ACUTE KIDNEY FAILURE, UNSPECIFIED (4) Hypertensive chronic kidney disease with stage 1 through stage 4 chronic kidney disease, or unspecified chronic kidney disease Current Visit: Yes Status: Acute Assessment & Plan: Blood pressure under reasonable control 1. Low Na diet 2. Antihypertensives prn 3. Monitor blood pressure readings Code(s): I12.9 - HYPERTENSIVE CHRONIC KIDNEY DISEASE W STG 1-4/UNSP CHR KDNY (5) Hypokalemia Current Visit: Yes Status: Acute Assessment & Plan: K low at 2.9 1. Encourage PO intake 2. Replete k, check Mg 3. Watch electrolytes closely Code(s): E87.6 - HYPOKALEMIA Telemedicine Encounter - Telemedicine Encounter Telemedicine Encounter: The entirety of this encounter was performed via Telemedicine"
--- NOTE | 2023-10-12 21:14 | XRAY ---
Indication: Pain and swelling. 2-dimensional sonogram and color Doppler imaging major venous vessels right leg performed. Comparison: None No thrombus seen in the examined deep venous vessels right leg including greater saphenous vein. Veins demonstrate normal compressibility. Venous waveforms are normal with and without augmentation. Impression: Right leg negative for DVT. Comment: Preliminary report was given.
[2023-10-12] MEDS ORDERED: Docusate Sodium 100 MG PO PRN (21:18)
[2023-10-12] MEDS: Sodium Chloride 0.9% W/ 20 mEq KCl/LITER 1,000 ML IV SCH (21:44)
[2023-10-12] MEDS ORDERED: PREGABALIN 300 MG PO SCH (22:00)
[2023-10-12] MEDS: TYLENOL 325 MG PO PRN (22:19)
[2023-10-12] MEDS: LYRICA 150MG PO SCH (22:19)
[2023-10-12] MEDS: Pepcid 20 MG PO SCH (22:20)
[2023-10-12] MEDS: VANCOMYCIN 1 GRAM/200 ML BAG 1 GM/200 ML PIGGYBACK IV SCH (22:48)
[2023-10-12] MEDS ORDERED: Tylenol #3 Tablet PO PRN (23:10)
[2023-10-12] MEDS: PIPERACILLIN/TAZOBACTAM 4.5 GM in Sodium Chloride 100ML MINI-BAG PLUS 100 ML IV SCH (23:14)
[2023-10-13] MEDS ORDERED: PIPERACILLIN/TAZOBACTAM IV ONE (02:50)
[2023-10-13] MEDS ORDERED: Sodium Chloride 100ML MINI-BAG PLUS 100 ML IV ONE (02:51)
[2023-10-13] MEDS: PIPERACILLIN/TAZOBACTAM 4.5 GM in Sodium Chloride 100ML MINI-BAG PLUS 100 ML IV SCH ×2 (02:54→08:05)
[2023-10-13 05:07] LABS: CREATININE,URINE RANDOM 47.7 MG/DL
[2023-10-13 05:19] LABS: Appearance Clear (Clear); Bacteria None Seen /HPF (None Seen); Bilirubin Negative (Negative); Blood Negative (Negative); Epithelial Cells None Seen /HPF (None Seen); Glucose, Urine Negative (Negative); Hyaline Casts NONE SEEN /LPF (0-2); Ketones Negative (Negative); Leukocyte Esterase Small (Negative); Nitrite Positive (Negative); Protein,Urine Dip 30 (Negative); RBC 0-2 /HPF (0-5); Urobilinogen 0.2 mg/dL (0.2); WBC 21-50 /HPF (0-5)
[2023-10-13 05:21] LABS: ADD URINE CULTURE? YES (NO)
[2023-10-13] MEDS: Miscellaneous Medication Order MC ONE (05:40)
[2023-10-13 05:51] LABS: Absolute Neutrophil Ct (ANC) 9.94 x10^3/uL (1.78-5.38); BASOPHIL % 0.5 % (0.2-1.2); Basophil (Absolute #) 0.07 x10^3/uL (0.01-0.08); Eosinophil % 1.5 % (0.8-7.0); Eosinophil (Absolute #) 0.19 x10^3/uL (0.04-0.54); Hematocrit 31.9 % (40.1-51.0); Hemoglobin 9.6 g/dL (13.7-17.5); IMMATURE GRAN # 0.25 x10^3u/L (0.001-0.031); IMMATURE GRAN % 1.9 % (0.001-0.429); Lymphocyte (Absolute #) 1.48 x10^3/uL (1.32-3.57); Lymphocytes % 11.4 % (21.8-53.1); Mean Cell Volume 80.2 fL (79.0-92.2); Mean Corpuscular Hemoglobin 24.1 pg (25.7-32.2); Mean Corpuscular Hgb Concent. 30.1 g/dL (32.3-36.5); Mean Platelet Volume 9.6 fL (9.4-12.4); Monocyte (Absolute #) 1.07 x10^3/uL (0.30-0.82); Monocytes % 8.2 % (5.3-12.2); Neutrophil % 76.5 % (34.0-67.9); Platelet Count 535 x10^3/uL (163-337); Red Blood Count 3.98 x10^6/uL (4.63-6.08); Red Cell Distribution Width 16.7 % (11.6-14.4)
[2023-10-13] MEDS: VANCOMYCIN 1 GRAM/200 ML BAG 1 GM/200 ML PIGGYBACK IV SCH (05:56)
--- NOTE | 2023-10-13 06:01 | PCM.NOTE ---
Date and Time: 10/13/23 0559 Subjective Assessment: History of Present Illness: Mr. OTILIA CHAPIN is a 63 year old male with a past medical history significant for hypertension, diabetes and PAD status post L BKA who presents with complaints of RLE swelling for about two weeks. He took oral antibiotics without much improvement and comes back with pain and redness around his R foot/leg. He is unable to recall if he had any trauma or triggers to the infection. No fever/chills. No drainage from his foot/leg. He is resting in bed, awake/alert, hoping to go home tomorrow so he can return to work on Saturday. No chest pain or shortness of breath. No nausea, vomiting or diarrhea. No dysuria, hematuria or urinary frequency. Venous doppler negative for DVT but he is unsure how his circulation is. 10/13/23: Met with patient bedside. Patient is anxious for discharge. Discussed current lab findings. RLE edematous with quarter sized open wound to posterior/lateral right foot. RLE with 4+ pitting edema. Recultured today. Podiatry consulted. Right foot xray showing destructive osteolytic bony lesion seen involving the base of the 5th metatarsal with periosteal reaction around the 4th and 5th metatarsal bone shafts and related soft tissue sewlling, suggesting osteomyelitis. Patient follows with Dr. Villalobos in [place] (podiatry). Current treatment with vanc/zosyn. Denies fever,cough, sob, cp, abdominal pain, KENDALL, dizziness, N/V/D. <NICA LONDONO - Last Filed: 10/13/23 10:20> Date and Time: 10/13/231950 <EDU LIMON - Last Filed: 10/13/23 19:53> - Review of Systems Constitutional: No Symptoms Eyes: No Symptoms Ears, Nose, & Throat: No Symptoms Respiratory: No Symptoms Cardiac: No Symptoms Abdominal/Gastrointestinal: No Symptoms Genitourinary Symptoms: No Symptoms Musculoskeletal: Joint Pain (right ankle) Skin: Skin Lesions (right posterior foot- quarter sized open wound ) Neurological: No Symptoms Psychological: No Symptoms Endocrine: No Symptoms Hematologic/Lymphatic: No Symptoms Immunological/Allergic: No Symptoms <NICA LONDONO - Last Filed: 10/13/23 10:20> Objective Exam General Appearance: no apparent distress Neurologic Exam: alert, oriented x 3, agitation Skin Exam: other (right posterior foot- quarter sized open wound) Wound Assessment: Skin/Wound Assessment Wound/Incision Assessment Start: 10/12/23 20:56 Text: Status: Active Freq: Q6H Protocol: Document 10/13/23 02:00 AK (Rec: 10/13/23 02:26 AK [id number]) Wound Photo Photo Taken Yes Date: 10/12/23 Time: 21:30 Comment: see paper chart Eye Exam: PERRL Ears, Nose, Throat Exam: normal ENT inspection Neck Exam: normal inspection Respiratory Exam: normal breath sounds, lungs clear Cardiovascular Exam: regular rate/rhythm, normal heart sounds Gastrointestinal/Abdomen Exam: soft, normal bowel sounds Extremity Exam: amputations (LBKA), inflammation, pedal edema, swelling, other (right posterior foot- quarter sized open wound) Back Exam: normal inspection <NICA LONDONO - Last Filed: 10/13/23 10:20> Wound Assessment: Skin/Wound Assessment Wound/Incision Assessment Start: 10/12/23 20:56 Text: Status: Active Freq: Q6H Protocol: Document 10/13/23 14:00 RF (Rec: 10/13/23 14:17 RF [id number]) Wound Photo Photo Taken Yes Date: 10/12/23 Time: 21:30 Comment: see paper chart <EDU LIMON - Last Filed: 10/13/23 19:53> Objective Data Vital Signs: Vital Signs - 24 hr Temp Pulse Resp BP BP Pulse Ox 10/13/23 05:04 83/48 10/13/23 04:00 98.2 F 69 18 85/44 95 10/12/23 21:12 98.7 F 86 16 129/67 93 L 10/12/23 19:26 100 10/12/23 18:00 81 28 H 121/79 10/12/23 17:30 82 21 138/74 10/12/23 17:11 81 33 H 120/78 100 10/12/23 17:05 99 F 83 24 120/78 96 Pain Assessment - Last Documented Pain Intensity 0 Pain Scale Used Rubén Ruiz Intake and Output: Intake & Output 10/10/23 10/11/23 10/12/23 10/13/23 11:59 11:59 11:59 11:59 Intake Total 863 Output Total 400 Balance 463 Weight 114.1 kg Lab Results: Lab Results-Last 24 Hours 10/12/23 10/12/23 10/12/23 Range/Units 04:54 04:54 18:35 WBC (4.23-9.07) x10^3/uL RBC (4.63-6.08) x10^6/uL Hgb (13.7-17.5) g/dL Hct (40.1-51.0) % MCV (79.0-92.2) fL MCH (25.7-32.2) pg MCHC (32.3-36.5) g/dL RDW (11.6-14.4) % Plt Count (163-337) x10^3/uL MPV (9.4-12.4) fL Gran % (34.0-67.9) % Immature Gran % (Auto) (0.001-0.429) % Nucleat RBC Rel Count (0.00-0.2) % Eos # (Auto) (0.04-0.54) x10^3/uL Immature Gran # (Auto) (0.001-0.031) x10^3u/L Absolute Lymphs (auto) (1.32-3.57) x10^3/uL Absolute Monos (auto) (0.30-0.82) x10^3/uL Absolute Nucleated RBC (0.00-0.012) x10^3u/L Lymphocytes % (21.8-53.1) % Monocytes % (5.3-12.2) % Eosinophils % (0.8-7.0) % Basophils % (0.2-1.2) % Absolute Granulocytes (1.78-5.38) x10^3/uL Basophils # (0.01-0.08) x10^3/uL pO2/FiO2 Ratio 21.0 % VBG pH 7.43 H (7.32-7.42) VBG pCO2 at Pat Temp 30 L (42-55) mm/Hg VBG pO2 at Pat Temp 39 (25-40) mm/Hg VBG HCO3 19.9 L (22-28) meq/L VBG O2 Sat (Huseyin) 68.3 L (95-100) VBG Base Excess -3.6 L (-2.0-2.0) VBG Hemoglobin 10.9 VBG Carboxyhemoglobin 2.3 (0.0-6.9) % T HGB POC Potassium 3.3 L (3.5-5.1) Sodium (135-145) mmol/L Potassium (3.5-5.1) mmol/L Chloride (98-107) mmol/L Carbon Dioxide (22-30) mmol/L Anion Gap (5-15) MEQ/L BUN (9-20) mg/dL Creatinine (0.66-1.25) mg/dL Estimated GFR ML/MIN Glucose (74-106) mg/dL POC Glucometer (74 to 106) mg/dL Lactic Acid 2.7 H (0.4-2.0) Calcium (8.4-10.2) mg/dL Total Bilirubin (0.2-1.3) mg/dL AST (17-59) U/L ALT (0-50) U/L Alkaline Phosphatase (38-126) U/L Serum Total Protein (6.3-8.2) g/dL Albumin (3.5-5.0) g/dL Prealbumin (17.6-36.0) mg/dL Procalcitonin (0.030-0.080) ng/mL Urine Color Yellow (Yellow) Urine Appearance Clear (Clear) Urine pH 6.0 (4.6-8.0) Ur Specific [place] 1.010 (1.005-1.030) Urine Protein 30 (Negative) Urine Glucose (UA) Negative (Negative) mg/dL Urine Ketones Negative (Negative) Urine Blood Negative (Negative) Urine Nitrite Positive A (Negative) Urine Bilirubin Negative (Negative) Urine Urobilinogen 0.2 (0.2) mg/dL Ur Leukocyte Esterase Small A (Negative) U Hyaline Cast (Auto) NONE SEEN (0-2) /LPF Urine Microscopic RBC 0-2 (0-5) /HPF Urine Microscopic WBC 21-50 A (0-5) /HPF Ur Epithelial Cells None Seen (None Seen) /HPF Urine Bacteria None Seen (None Seen) /HPF Urine Culture Reflexed YES (NO) Ur Random Creatinine 47.7 MG/DL U Random Total Protein 65 H (0-12) mg/dL Urine Sodium 46 (30-90) mmol/L 10/12/23 10/12/23 10/12/23 Range/Units 18:50 18:50 18:50 WBC 14.1 H (4.23-9.07) x10^3/uL RBC 4.23 L (4.63-6.08) x10^6/uL Hgb 10.1 L (13.7-17.5) g/dL Hct 33.0 L (40.1-51.0) % MCV 78.0 L (79.0-92.2) fL MCH 23.9 L (25.7-32.2) pg MCHC 30.6 L (32.3-36.5) g/dL RDW 16.6 H (11.6-14.4) % Plt Count 618 H (163-337) x10^3/uL MPV 9.3 L (9.4-12.4) fL Gran % 78.4 H (34.0-67.9) % Immature Gran % (Auto) 2.1 H (0.001-0.429) % Nucleat RBC Rel Count 0.0 (0.00-0.2) % Eos # (Auto) 0.17 (0.04-0.54) x10^3/uL Immature Gran # (Auto) 0.30 H (0.001-0.031) x10^3u/L Absolute Lymphs (auto) 1.58 (1.32-3.57) x10^3/uL Absolute Monos (auto) 0.96 H (0.30-0.82) x10^3/uL Absolute Nucleated RBC 0.00 (0.00-0.012) x10^3u/L Lymphocytes % 11.2 L (21.8-53.1) % Monocytes % 6.8 (5.3-12.2) % Eosinophils % 1.2 (0.8-7.0) % Basophils % 0.3 (0.2-1.2) % Absolute Granulocytes 11.01 H (1.78-5.38) x10^3/uL Basophils # 0.04 (0.01-0.08) x10^3/uL pO2/FiO2 Ratio % VBG pH (7.32-7.42) VBG pCO2 at Pat Temp (42-55) mm/Hg VBG pO2 at Pat Temp (25-40) mm/Hg VBG HCO3 (22-28) meq/L VBG O2 Sat (Huseyin) (95-100) VBG Base Excess (-2.0-2.0) VBG Hemoglobin VBG Carboxyhemoglobin (0.0-6.9) % T HGB POC Potassium (3.5-5.1) Sodium 137 (135-145) mmol/L Potassium 2.9 L* (3.5-5.1) mmol/L Chloride 106 (98-107) mmol/L Carbon Dioxide 19 L (22-30) mmol/L Anion Gap 14.4 (5-15) MEQ/L BUN 19 (9-20) mg/dL Creatinine 1.37 H (0.66-1.25) mg/dL Estimated GFR 57.6 ML/MIN Glucose 138 H (74-106) mg/dL POC Glucometer (74 to 106) mg/dL Lactic Acid (0.4-2.0) Calcium 8.4 (8.4-10.2) mg/dL Total Bilirubin 0.50 (0.2-1.3) mg/dL AST 64 H (17-59) U/L ALT 41 (0-50) U/L Alkaline Phosphatase 256 H (38-126) U/L Serum Total Protein 6.5 (6.3-8.2) g/dL Albumin 3.1 L (3.5-5.0) g/dL Prealbumin (17.6-36.0) mg/dL Procalcitonin 0.590 H (0.030-0.080) ng/mL Urine Color (Yellow) Urine Appearance (Clear) Urine pH (4.6-8.0) Ur Specific [place] (1.005-1.030) Urine Protein (Negative) Urine Glucose (UA) (Negative) mg/dL Urine Ketones (Negative) Urine Blood (Negative) Urine Nitrite (Negative) Urine Bilirubin (Negative) Urine Urobilinogen (0.2) mg/dL Ur Leukocyte Esterase (Negative) U Hyaline Cast (Auto) (0-2) /LPF Urine Microscopic RBC (0-5) /HPF Urine Microscopic WBC (0-5) /HPF Ur Epithelial Cells (None Seen) /HPF Urine Bacteria (None Seen) /HPF Urine Culture Reflexed (NO) Ur Random Creatinine MG/DL U Random Total Protein (0-12) mg/dL Urine Sodium (30-90) mmol/L 10/12/23 10/12/23 Range/Units 18:50 21:54 WBC (4.23-9.07) x10^3/uL RBC (4.63-6.08) x10^6/uL Hgb (13.7-17.5) g/dL Hct (40.1-51.0) % MCV (79.0-92.2) fL MCH (25.7-32.2) pg MCHC (32.3-36.5) g/dL RDW (11.6-14.4) % Plt Count (163-337) x10^3/uL MPV (9.4-12.4) fL Gran % (34.0-67.9) % Immature Gran % (Auto) (0.001-0.429) % Nucleat RBC Rel Count (0.00-0.2) % Eos # (Auto) (0.04-0.54) x10^3/uL Immature Gran # (Auto) (0.001-0.031) x10^3u/L Absolute Lymphs (auto) (1.32-3.57) x10^3/uL Absolute Monos (auto) (0.30-0.82) x10^3/uL Absolute Nucleated RBC (0.00-0.012) x10^3u/L Lymphocytes % (21.8-53.1) % Monocytes % (5.3-12.2) % Eosinophils % (0.8-7.0) % Basophils % (0.2-1.2) % Absolute Granulocytes (1.78-5.38) x10^3/uL Basophils # (0.01-0.08) x10^3/uL pO2/FiO2 Ratio % VBG pH (7.32-7.42) VBG pCO2 at Pat Temp (42-55) mm/Hg VBG pO2 at Pat Temp (25-40) mm/Hg VBG HCO3 (22-28) meq/L VBG O2 Sat (Huseyin) (95-100) VBG Base Excess (-2.0-2.0) VBG Hemoglobin VBG Carboxyhemoglobin (0.0-6.9) % T HGB POC Potassium (3.5-5.1) Sodium (135-145) mmol/L Potassium (3.5-5.1) mmol/L Chloride (98-107) mmol/L Carbon Dioxide (22-30) mmol/L Anion Gap (5-15) MEQ/L BUN (9-20) mg/dL Creatinine (0.66-1.25) mg/dL Estimated GFR ML/MIN Glucose (74-106) mg/dL POC Glucometer 155 H (74 to 106) mg/dL Lactic Acid (0.4-2.0) Calcium (8.4-10.2) mg/dL Total Bilirubin (0.2-1.3) mg/dL AST (17-59) U/L ALT (0-50) U/L Alkaline Phosphatase (38-126) U/L Serum Total Protein (6.3-8.2) g/dL Albumin (3.5-5.0) g/dL Prealbumin 7.01 L (17.6-36.0) mg/dL Procalcitonin (0.030-0.080) ng/mL Urine Color (Yellow) Urine Appearance (Clear) Urine pH (4.6-8.0) Ur Specific [place] (1.005-1.030) Urine Protein (Negative) Urine Glucose (UA) (Negative) mg/dL Urine Ketones (Negative) Urine Blood (Negative) Urine Nitrite (Negative) Urine Bilirubin (Negative) Urine Urobilinogen (0.2) mg/dL Ur Leukocyte Esterase (Negative) U Hyaline Cast (Auto) (0-2) /LPF Urine Microscopic RBC (0-5) /HPF Urine Microscopic WBC (0-5) /HPF Ur Epithelial Cells (None Seen) /HPF Urine Bacteria (None Seen) /HPF Urine Culture Reflexed (NO) Ur Random Creatinine MG/DL U Random Total Protein (0-12) mg/dL Urine Sodium (30-90) mmol/L Radiology Exams: Radiology Procedures Category Date Time Status ARTERIAL UNILAT/LTD LOWER EXT [US] Routine Exams 10/13/23 08:00 Ordered HEAD WITHOUT CONTRAST [CT] Stat Exams 10/12/23 18:11 Completed VENOUS UNILAT/LIMITED EXTREMIT [US] Stat Exams 10/12/23 18:07 Completed <NICA LONDONO - Last Filed: 10/13/23 10:20> Vital Signs: Vital Signs - 24 hr Temp Pulse Resp BP Pulse Ox 10/13/23 16:00 97.4 F 70 18 127/64 96 10/13/23 08:05 98.2 F 75 20 129/70 99 10/13/23 06:38 97/52 10/13/23 05:04 83/48 10/13/23 04:00 98.2 F 69 18 85/44 95 10/12/23 21:12 98.7 F 86 16 129/67 93 L Pain Assessment - Last Documented Pain Intensity 0 Pain Scale Used Kathleen-Alvarado Faces Intake and Output: Intake & Output 10/11/23 10/12/23 10/13/23 10/14/23 11:59 11:59 11:59 11:59 Intake Total 1638 670 Output Total 850 Balance 788 670 Weight 114.1 kg Lab Results: Lab Results-Last 24 Hours 10/12/23 10/12/23 10/12/23 Range/Units 04:54 04:54 18:50 WBC (4.23-9.07) x10^3/uL RBC (4.63-6.08) x10^6/uL Hgb (13.7-17.5) g/dL Hct (40.1-51.0) % MCV (79.0-92.2) fL MCH (25.7-32.2) pg MCHC (32.3-36.5) g/dL RDW (11.6-14.4) % Plt Count (163-337) x10^3/uL MPV (9.4-12.4) fL Gran % (34.0-67.9) % Immature Gran % (Auto) (0.001-0.429) % Nucleat RBC Rel Count (0.00-0.2) % Eos # (Auto) (0.04-0.54) x10^3/uL Immature Gran # (Auto) (0.001-0.031) x10^3u/L Absolute Lymphs (auto) (1.32-3.57) x10^3/uL Absolute Monos (auto) (0.30-0.82) x10^3/uL Absolute Nucleated RBC (0.00-0.012) x10^3u/L Lymphocytes % (21.8-53.1) % Monocytes % (5.3-12.2) % Eosinophils % (0.8-7.0) % Basophils % (0.2-1.2) % Absolute Granulocytes (1.78-5.38) x10^3/uL Basophils # (0.01-0.08) x10^3/uL Sodium (135-145) mmol/L Potassium (3.5-5.1) mmol/L Chloride (98-107) mmol/L Carbon Dioxide (22-30) mmol/L Anion Gap (5-15) MEQ/L BUN (9-20) mg/dL Creatinine (0.66-1.25) mg/dL Estimated GFR ML/MIN Glucose (74-106) mg/dL POC Glucometer (74 to 106) mg/dL Hemoglobin A1c (4.5-6.0) % Lactic Acid (0.4-2.0) Calcium (8.4-10.2) mg/dL Magnesium (1.6-2.3) mg/dL Total Bilirubin (0.2-1.3) mg/dL AST (17-59) U/L ALT (0-50) U/L Alkaline Phosphatase (38-126) U/L Serum Total Protein (6.3-8.2) g/dL Albumin (3.5-5.0) g/dL Prealbumin (17.6-36.0) mg/dL Procalcitonin 0.590 H (0.030-0.080) ng/mL Urine Color Yellow (Yellow) Urine Appearance Clear (Clear) Urine pH 6.0 (4.6-8.0) Ur Specific [place] 1.010 (1.005-1.030) Urine Protein 30 (Negative) Urine Glucose (UA) Negative (Negative) mg/dL Urine Ketones Negative (Negative) Urine Blood Negative (Negative) Urine Nitrite Positive A (Negative) Urine Bilirubin Negative (Negative) Urine Urobilinogen 0.2 (0.2) mg/dL Ur Leukocyte Esterase Small A (Negative) U Hyaline Cast (Auto) NONE SEEN (0-2) /LPF Urine Microscopic RBC 0-2 (0-5) /HPF Urine Microscopic WBC 21-50 A (0-5) /HPF Ur Epithelial Cells None Seen (None Seen) /HPF Urine Bacteria None Seen (None Seen) /HPF Urine Culture Reflexed YES (NO) Ur Random Creatinine 47.7 MG/DL U Random Total Protein 65 H (0-12) mg/dL Urine Sodium 46 (30-90) mmol/L 10/12/23 10/12/23 10/13/23 Range/Units 18:50 21:54 05:02 WBC (4.23-9.07) x10^3/uL RBC (4.63-6.08) x10^6/uL Hgb (13.7-17.5) g/dL Hct (40.1-51.0) % MCV (79.0-92.2) fL MCH (25.7-32.2) pg MCHC (32.3-36.5) g/dL RDW (11.6-14.4) % Plt Count (163-337) x10^3/uL MPV (9.4-12.4) fL Gran % (34.0-67.9) % Immature Gran % (Auto) (0.001-0.429) % Nucleat RBC Rel Count (0.00-0.2) % Eos # (Auto) (0.04-0.54) x10^3/uL Immature Gran # (Auto) (0.001-0.031) x10^3u/L Absolute Lymphs (auto) (1.32-3.57) x10^3/uL Absolute Monos (auto) (0.30-0.82) x10^3/uL Absolute Nucleated RBC (0.00-0.012) x10^3u/L Lymphocytes % (21.8-53.1) % Monocytes % (5.3-12.2) % Eosinophils % (0.8-7.0) % Basophils % (0.2-1.2) % Absolute Granulocytes (1.78-5.38) x10^3/uL Basophils # (0.01-0.08) x10^3/uL Sodium (135-145) mmol/L Potassium (3.5-5.1) mmol/L Chloride (98-107) mmol/L Carbon Dioxide (22-30) mmol/L Anion Gap (5-15) MEQ/L BUN (9-20) mg/dL Creatinine (0.66-1.25) mg/dL Estimated GFR ML/MIN Glucose (74-106) mg/dL POC Glucometer 155 H (74 to 106) mg/dL Hemoglobin A1c (4.5-6.0) % Lactic Acid 1.6 (0.4-2.0) Calcium (8.4-10.2) mg/dL Magnesium (1.6-2.3) mg/dL Total Bilirubin (0.2-1.3) mg/dL AST (17-59) U/L ALT (0-50) U/L Alkaline Phosphatase (38-126) U/L Serum Total Protein (6.3-8.2) g/dL Albumin (3.5-5.0) g/dL Prealbumin 7.01 L (17.6-36.0) mg/dL Procalcitonin (0.030-0.080) ng/mL Urine Color (Yellow) Urine Appearance (Clear) Urine pH (4.6-8.0) Ur Specific [place] (1.005-1.030) Urine Protein (Negative) Urine Glucose (UA) (Negative) mg/dL Urine Ketones (Negative) Urine Blood (Negative) Urine Nitrite (Negative) Urine Bilirubin (Negative) Urine Urobilinogen (0.2) mg/dL Ur Leukocyte Esterase (Negative) U Hyaline Cast (Auto) (0-2) /LPF Urine Microscopic RBC (0-5) /HPF Urine Microscopic WBC (0-5) /HPF Ur Epithelial Cells (None Seen) /HPF Urine Bacteria (None Seen) /HPF Urine Culture Reflexed (NO) Ur Random Creatinine MG/DL U Random Total Protein (0-12) mg/dL Urine Sodium (30-90) mmol/L 10/13/23 10/13/23 10/13/23 Range/Units 05:40 05:40 05:40 WBC 13.0 H (4.23-9.07) x10^3/uL RBC 3.98 L (4.63-6.08) x10^6/uL Hgb 9.6 L (13.7-17.5) g/dL Hct 31.9 L (40.1-51.0) % MCV 80.2 (79.0-92.2) fL MCH 24.1 L (25.7-32.2) pg MCHC 30.1 L (32.3-36.5) g/dL RDW 16.7 H (11.6-14.4) % Plt Count 535 H (163-337) x10^3/uL MPV 9.6 (9.4-12.4) fL Gran % 76.5 H (34.0-67.9) % Immature Gran % (Auto) 1.9 H (0.001-0.429) % Nucleat RBC Rel Count 0.0 (0.00-0.2) % Eos # (Auto) 0.19 (0.04-0.54) x10^3/uL Immature Gran # (Auto) 0.25 H (0.001-0.031) x10^3u/L Absolute Lymphs (auto) 1.48 (1.32-3.57) x10^3/uL Absolute Monos (auto) 1.07 H (0.30-0.82) x10^3/uL Absolute Nucleated RBC 0.00 (0.00-0.012) x10^3u/L Lymphocytes % 11.4 L (21.8-53.1) % Monocytes % 8.2 (5.3-12.2) % Eosinophils % 1.5 (0.8-7.0) % Basophils % 0.5 (0.2-1.2) % Absolute Granulocytes 9.94 H (1.78-5.38) x10^3/uL Basophils # 0.07 (0.01-0.08) x10^3/uL Sodium 139 (135-145) mmol/L Potassium 3.3 L (3.5-5.1) mmol/L Chloride 112 H (98-107) mmol/L Carbon Dioxide 18 L (22-30) mmol/L Anion Gap 12.4 (5-15) MEQ/L BUN 18 (9-20) mg/dL Creatinine 1.32 H (0.66-1.25) mg/dL Estimated GFR 60.2 ML/MIN Glucose 144 H (74-106) mg/dL POC Glucometer (74 to 106) mg/dL Hemoglobin A1c 6.56 H (4.5-6.0) % Lactic Acid (0.4-2.0) Calcium 8.2 L (8.4-10.2) mg/dL Magnesium 2.0 (1.6-2.3) mg/dL Total Bilirubin 0.70 (0.2-1.3) mg/dL AST 37 (17-59) U/L ALT 29 (0-50) U/L Alkaline Phosphatase 208 H (38-126) U/L Serum Total Protein 6.0 L (6.3-8.2) g/dL Albumin 2.7 L (3.5-5.0) g/dL Prealbumin (17.6-36.0) mg/dL Procalcitonin (0.030-0.080) ng/mL Urine Color (Yellow) Urine Appearance (Clear) Urine pH (4.6-8.0) Ur Specific [place] (1.005-1.030) Urine Protein (Negative) Urine Glucose (UA) (Negative) mg/dL Urine Ketones (Negative) Urine Blood (Negative) Urine Nitrite (Negative) Urine Bilirubin (Negative) Urine Urobilinogen (0.2) mg/dL Ur Leukocyte Esterase (Negative) U Hyaline Cast (Auto) (0-2) /LPF Urine Microscopic RBC (0-5) /HPF Urine Microscopic WBC (0-5) /HPF Ur Epithelial Cells (None Seen) /HPF Urine Bacteria (None Seen) /HPF Urine Culture Reflexed (NO) Ur Random Creatinine MG/DL U Random Total Protein (0-12) mg/dL Urine Sodium (30-90) mmol/L 10/13/23 10/13/23 10/13/23 Range/Units 07:30 11:04 11:19 WBC (4.23-9.07) x10^3/uL RBC (4.63-6.08) x10^6/uL Hgb (13.7-17.5) g/dL Hct (40.1-51.0) % MCV (79.0-92.2) fL MCH (25.7-32.2) pg MCHC (32.3-36.5) g/dL RDW (11.6-14.4) % Plt Count (163-337) x10^3/uL MPV (9.4-12.4) fL Gran % (34.0-67.9) % Immature Gran % (Auto) (0.001-0.429) % Nucleat RBC Rel Count (0.00-0.2) % Eos # (Auto) (0.04-0.54) x10^3/uL Immature Gran # (Auto) (0.001-0.031) x10^3u/L Absolute Lymphs (auto) (1.32-3.57) x10^3/uL Absolute Monos (auto) (0.30-0.82) x10^3/uL Absolute Nucleated RBC (0.00-0.012) x10^3u/L Lymphocytes % (21.8-53.1) % Monocytes % (5.3-12.2) % Eosinophils % (0.8-7.0) % Basophils % (0.2-1.2) % Absolute Granulocytes (1.78-5.38) x10^3/uL Basophils # (0.01-0.08) x10^3/uL Sodium 137 (135-145) mmol/L Potassium 3.3 L (3.5-5.1) mmol/L Chloride 111 H (98-107) mmol/L Carbon Dioxide 17 L (22-30) mmol/L Anion Gap 12.9 (5-15) MEQ/L BUN 17 (9-20) mg/dL Creatinine 1.34 H (0.66-1.25) mg/dL Estimated GFR 59.2 ML/MIN Glucose 151 H (74-106) mg/dL POC Glucometer 127 H 130 H (74 to 106) mg/dL Hemoglobin A1c (4.5-6.0) % Lactic Acid (0.4-2.0) Calcium 8.1 L (8.4-10.2) mg/dL Magnesium (1.6-2.3) mg/dL Total Bilirubin 0.60 (0.2-1.3) mg/dL AST 40 (17-59) U/L ALT 28 (0-50) U/L Alkaline Phosphatase 208 H (38-126) U/L Serum Total Protein 5.8 L (6.3-8.2) g/dL Albumin 2.6 L (3.5-5.0) g/dL Prealbumin (17.6-36.0) mg/dL Procalcitonin (0.030-0.080) ng/mL Urine Color (Yellow) Urine Appearance (Clear) Urine pH (4.6-8.0) Ur Specific [place] (1.005-1.030) Urine Protein (Negative) Urine Glucose (UA) (Negative) mg/dL Urine Ketones (Negative) Urine Blood (Negative) Urine Nitrite (Negative) Urine Bilirubin (Negative) Urine Urobilinogen (0.2) mg/dL Ur Leukocyte Esterase (Negative) U Hyaline Cast (Auto) (0-2) /LPF Urine Microscopic RBC (0-5) /HPF Urine Microscopic WBC (0-5) /HPF Ur Epithelial Cells (None Seen) /HPF Urine Bacteria (None Seen) /HPF Urine Culture Reflexed (NO) Ur Random Creatinine MG/DL U Random Total Protein (0-12) mg/dL Urine Sodium (30-90) mmol/L 10/13/23 10/13/23 10/13/23 Range/Units 11:40 15:55 17:00 WBC (4.23-9.07) x10^3/uL RBC (4.63-6.08) x10^6/uL Hgb (13.7-17.5) g/dL Hct (40.1-51.0) % MCV (79.0-92.2) fL MCH (25.7-32.2) pg MCHC (32.3-36.5) g/dL RDW (11.6-14.4) % Plt Count (163-337) x10^3/uL MPV (9.4-12.4) fL Gran % (34.0-67.9) % Immature Gran % (Auto) (0.001-0.429) % Nucleat RBC Rel Count (0.00-0.2) % Eos # (Auto) (0.04-0.54) x10^3/uL Immature Gran # (Auto) (0.001-0.031) x10^3u/L Absolute Lymphs (auto) (1.32-3.57) x10^3/uL Absolute Monos (auto) (0.30-0.82) x10^3/uL Absolute Nucleated RBC (0.00-0.012) x10^3u/L Lymphocytes % (21.8-53.1) % Monocytes % (5.3-12.2) % Eosinophils % (0.8-7.0) % Basophils % (0.2-1.2) % Absolute Granulocytes (1.78-5.38) x10^3/uL Basophils # (0.01-0.08) x10^3/uL Sodium 140 (135-145) mmol/L Potassium 3.3 L (3.5-5.1) mmol/L Chloride 114 H (98-107) mmol/L Carbon Dioxide 17 L (22-30) mmol/L Anion Gap 11.7 (5-15) MEQ/L BUN 16 (9-20) mg/dL Creatinine 1.40 H (0.66-1.25) mg/dL Estimated GFR 56.1 ML/MIN Glucose 127 H (74-106) mg/dL POC Glucometer 124 H (74 to 106) mg/dL Hemoglobin A1c (4.5-6.0) % Lactic Acid (0.4-2.0) Calcium 8.3 L (8.4-10.2) mg/dL Magnesium 2.1 (1.6-2.3) mg/dL Total Bilirubin 0.60 (0.2-1.3) mg/dL AST 49 (17-59) U/L ALT 30 (0-50) U/L Alkaline Phosphatase 211 H (38-126) U/L Serum Total Protein 5.9 L (6.3-8.2) g/dL Albumin 2.7 L (3.5-5.0) g/dL Prealbumin (17.6-36.0) mg/dL Procalcitonin (0.030-0.080) ng/mL Urine Color (Yellow) Urine Appearance (Clear) Urine pH (4.6-8.0) Ur Specific [place] (1.005-1.030) Urine Protein (Negative) Urine Glucose (UA) (Negative) mg/dL Urine Ketones (Negative) Urine Blood (Negative) Urine Nitrite (Negative) Urine Bilirubin (Negative) Urine Urobilinogen (0.2) mg/dL Ur Leukocyte Esterase (Negative) U Hyaline Cast (Auto) (0-2) /LPF Urine Microscopic RBC (0-5) /HPF Urine Microscopic WBC (0-5) /HPF Ur Epithelial Cells (None Seen) /HPF Urine Bacteria (None Seen) /HPF Urine Culture Reflexed (NO) Ur Random Creatinine MG/DL U Random Total Protein (0-12) mg/dL Urine Sodium (30-90) mmol/L Radiology Exams: Radiology Procedures Category Date Time Status ARTERIAL UNILAT/LTD LOWER EXT [US] Routine Exams 10/13/23 08:00 Ordered FOOT (MINIMUM 3 VIEWS) Stat Exams 10/13/23 08:50 Completed HEAD WITHOUT CONTRAST [CT] Stat Exams 10/12/23 18:11 Completed MRI LOWER EXT WITH CONTRAST [MRI] Routine Exams 10/14/23 08:00 Ordered VENOUS UNILAT/LIMITED EXTREMIT [US] Stat Exams 10/12/23 18:07 Completed <EDU LIMON - Last Filed: 10/13/23 19:53> Assessment/Plan (1) Osteomyelitis of right foot Current Visit: Yes Status: Acute Assessment & Plan: -Podiatry consulted - appreciate recs -Continue vanc/zosyn -Pt follows with podiatry op Dr. Villalobos in [place] - recently prescribed levaquin x 21 day on 09/10/23 -US negative for DVT -Right foot xray showing destructive osteolytic bony lesion seen involving the base of the 5th metatarsal with periosteal reaction around the 4th and 5th metatarsal bone shafts and related soft tissue swelling, suggesting osteomyelitis -wound culture of right posterior foot open wound (1) Cellulitis of right lower extremity Likely from inadequate antibiotics but should really evaluate circulation for PAD 1. Empiric antibiotics with Vanc/Zosyn for broad spectrum coverage 2. Arterial doppler RLE 3. DVT prophylaxis 4. Monitor erythema 5. Pain control 10/12: -Continue vanc/zosyn - ?cellulitis vs venous stasis dermatitis -Podiatry consulted - ? compression dressing Code(s): L03.115 - CELLULITIS OF RIGHT LOWER LIMB (2) Hx of left BKA Current Visit: Yes Status: Acute Code(s): Z89.512 - ACQUIRED ABSENCE OF LEFT LEG BELOW KNEE -with prosthesis (3) Acute kidney injury (nontraumatic) Current Visit: Yes Status: Acute Assessment & Plan: Creatinine elevated at 1.4 likely from prerenal azotemia 1. Trial of IVFs 2. Check urine lytes, urine creatinine 3. Follow I/Os 4. Watch electrolytes, creatinine closely 10/12: -baseline line around 1.1-1.2 - continue IVF - monitor for fluid overload Code(s): N17.9 - ACUTE KIDNEY FAILURE, UNSPECIFIED (4) Hypertensive chronic kidney disease with stage 1 through stage 4 chronic kidney disease, or unspecified chronic kidney disease Current Visit: Yes Status: Acute Assessment & Plan: Blood pressure under reasonable control 1. Low Na diet 2. Antihypertensives prn 3. Monitor blood pressure readings Code(s): I12.9 - HYPERTENSIVE CHRONIC KIDNEY DISEASE W STG 1-4/UNSP CHR KDNY (5) Hypokalemia Current Visit: Yes Status: Acute Assessment & Plan: K low at 2.9 1. Encourage PO intake 2. Replete k, check Mg 3. Watch electrolytes closely 10/12: -continue repletion per protocal improved at 3.3 # Type 2 diabetes mellitus -A1c 6.56 -No home medications - patient states he was taking Mounjaro -Accuchecks, SSI #UTI -UA suspicious for infection, coverage with vanc/zosyn for osteo, follow culture Code(s): M86.9 - OSTEOMYELITIS, UNSPECIFIED (2) Acute kidney injury (nontraumatic) Current Visit: Yes Status: Acute Code(s): N17.9 - ACUTE KIDNEY FAILURE, UNSPECIFIED (3) Cellulitis of right lower extremity Current Visit: Yes Status: Acute Code(s): L03.115 - CELLULITIS OF RIGHT LOWER LIMB (4) Hx of left BKA Current Visit: Yes Status: Acute Code(s): Z89.512 - ACQUIRED ABSENCE OF LEFT LEG BELOW KNEE (5) Hypertensive chronic kidney disease with stage 1 through stage 4 chronic kidney disease, or unspecified chronic kidney disease Current Visit: Yes Status: Acute Code(s): I12.9 - HYPERTENSIVE CHRONIC KIDNEY DISEASE W STG 1-4/UNSP CHR KDNY (6) Hypokalemia Current Visit: Yes Status: Acute Code(s): E87.6 - HYPOKALEMIA (7) Type 2 diabetes mellitus Current Visit: Yes Status: Acute (8) UTI (urinary tract infection) Current Visit: Yes Status: Acute Code(s): N39.0 - URINARY TRACT INFECTION, SITE NOT SPECIFIED <NICA LONDONO - Last Filed: 10/13/23 10:20> DORON Encounter - DORON Encounter Attestation DORON Encounter Attestation: "IhwhitpersonallysAston CHAPIN,JINA JOSSELYN andhavediscussed pertinent aspects of their care with Nica Romano agree with the history, physical exam (any modifications based on my personal exam will be noted below), assessment, and plan as outlined in original note. Please see immediately below for my summary of findings and additional assessment and plan along with any meaningful corrections/explanations to the Subjective/Objective portions of the DORON note will be noted." My portion of the encounter took place via telemedicine. -Patient with chronic RLE wound, concerning for osteomyelitis of 4th and 5th metatarsal on xray. Seen by podiatry, bedside debridement done with +bone probing, appreciate recs. MRI for further evaluation tomorrow. Podiatry will make further surgical decisions. Continue vanc zosyn for now. <EDU LIMON - Last Filed: 10/13/23 19:53>
[2023-10-13 06:11] LABS: ALBUMIN 2.7 g/dL (3.5-5.0); ANION GAP 12.4 MEQ/L (5-15); BILIRUBIN,TOTAL 0.7 mg/dL (0.2-1.3); Calcium 8.2 mg/dL (8.4-10.2); Creatinine 1 1.32 mg/dL (0.66-1.25); EST GLOMERULAR FILTRATION RATE 60.2 ML/MIN; Potassium 3.3 mmol/L (3.5-5.1)
[2023-10-13] MEDS: ENOXAPARIN SODIUM SQ SCH (09:51)
--- NOTE | 2023-10-13 10:09 | XRAY ---
CLINICAL HISTORY: Diabetic ulcer COMPARISON: None. TECHNIQUE: X-ray right foot AP, oblique and lateral 3 views. FINDINGS: Destructive osteolytic bony lesion seen involving the base of the 5th metatarsal bone associated with areas of bone lysis, multiple related master fragments, periosteal reaction around its shaft and soft tissue swelling, Remodeling of the remaining of the 5th metatarsal bone, suggesting osteomyelitis. Remodeling of the 4th metatarsal bone with periosteal reaction seen around its base and shaft, suggesting osteomyelitis. Internal fixation with screws at the distal tibia, fibula and calcaneus, no loosening. Extensive surrounding heterotrophic calcifications around the ankel joint. A curvilinear area of lucency noted at the posterior part of the calcaneus could represent infection or non-united fracture for correlation with patient history and clinical data. Arthritic changes of the intertarsal and tarsometatarsal joints with associated multiple loose bodies and increased bone density, suggesting charcoat joint. Degenerative changes are seen at first metatarsophalangeal joint. IMPRESSION: 1. Destructive osteolytic bony lesion seen involving the base of the 5th metatarsal with periosteal reaction around the 4th and 5th metatarsal bone shafts and related soft tissue sewlling, suggesting osteomyelitis for clinical correlation. 2. Internal fixation with screws at the distal tibia, fibula and calcaneus with extensive surrounding heterotrophic calcifications. 3. A curvilinear area of lucency noted at the posterior part of the calcaneus could represent infection or non-united fracture for correlation with patient history and clinical data. 4. Arthritic changes of the intertarsal and tarsometatarsal joint, suggesting charcot joint. 5. MRI foot with contrast is modality of choice. DISCLAIMER:A subtle bone abnormality or fracture may not be readily apparent on x-rays, thus clinical correlation and further imaging including follow up CT, MRI, or follow up x-rays are advised as needed.[facility] ER was called at [phone] at 09:01 AM DRAPERY HANGER, 10/13/2023 and results were verbally communicated to Nurse Moreno. Electronically Signed by: Liliana Alvarez MD. (10/13/2023 10:04:51 EDT)
[2023-10-13 11:30] LABS: ALBUMIN 2.6 g/dL (3.5-5.0); ANION GAP 12.9 MEQ/L (5-15); BILIRUBIN,TOTAL 0.6 mg/dL (0.2-1.3); Calcium 8.1 mg/dL (8.4-10.2); Creatinine 1 1.34 mg/dL (0.66-1.25); EST GLOMERULAR FILTRATION RATE 59.2 ML/MIN; Potassium 3.3 mmol/L (3.5-5.1); Total Protein 5.8 g/dL (6.3-8.2)
[2023-10-13] MEDS: SODIUM BICARBONATE PO SCH (12:53)
--- NOTE | 2023-10-13 12:56 | PCM.CONS ---
Podiatry HPI - Consult Date of Consultation Date: 10/13/23 Reason for Consult: osteomyelitis, Controlled DM II, DM neuropathy, calcaneal varus, BKA LLE, Consulting Provider: TAHIRA SOUZA DPM - [facility] History of Present Illness: Mr. Strauss is a very pleasant 63 year old male who presents with signficant past medical hx of osteomyelitis, Controlled DM II, DM neuropathy, calcaneal varus, BKA LLE. Patient has extensive surgical hx and is frustrated regarding current circumstances. He is currently being managed outpatient with Dr. Villalobos. He took oral antibiotics without much improvement and comes back with pain and redness around his R foot/leg. He is unable to recall if he had any trauma or triggers to the infection. No fever/chills. No drainage from his foot/leg. He is resting in bed, awake/alert, hoping to go home tomorrow so he can return to work on Saturday. No chest pain or shortness of breath. No nausea, vomiting or diarrhea. No dysuria, hematuria or urinary frequency. Venous doppler negative for DVT but he is unsure how his circulation is. Medications & Allergies Home Medications: Home Medication List Pregabalin 300 mg PO BID 10/12/23 [History Confirmed 10/12/23] Allergies/Adverse Reactions: Allergies Allergy/AdvReac Type Severity Reaction Status Date / Time Sulfa (Sulfonamide Allergy Mild Rash Verified 10/12/23 17:12 Antibiotics) morphine AdvReac Mild Nausea Verified 10/12/23 17:12 - Past Medical History Past Medical History: Yes Neurological History: Other ENT History: Other Cardiac History: No Pertinent History Respiratory History: No Pertinent History Endocrine Medical History: Diabetes Type II Musculoskelatal History: No Pertinent History GI Medical History: Other History: No Pertinent History Pyscho-Social History: No Pertinent History Male Reproductive Disorders: No Pertinent History Comment: L PHANTOM LIMB PAIN, CHARCOT - Past Surgical History Past Surgical History: Yes Neuro Surgical History: No Pertinent History Cardiac History: No Pertinent History Respiratory Surgery: No Pertinent History GI Surgical History: No Pertinent History Genitourinary Surgical Hx: No Pertinent History Musculskeletal Surgical Hx: Amputation, Other Male Surgical History: No Pertinent History Other Surgical History: LEFT BKA - Social History Smoking Status: Never smoker Exposure to second hand smoke: No Alcohol: None Drug Use: none - Social Determinants of Health Will the patient participate in the screening: Declined to provide Do you worry about a steady place to live?: No Do you have any problems with any of the following?: No known problems In the past 12 months,have you had to go without utilities?: No Have you or anyone in your house had to go without enough: No Transportation Issues: No Has anyone in your support network made you feel unsafe?: No Does the patient want assistance with any of the above?: No Physical Exam - General General Appearance: mild distress - Neuro Neurologic: Epicritic and protopathic (absent) - Vascular Capillary Refill Time: < 3 seconds Hair Growth: Symmetrical and Bilateral Varicosities: Positive Edema: Pitting Edema Degree: 4+ Skin: Supple, not atrophic - Muscular Foot Type: pes cavus (RLE in cavus. LLE BKA) - Narrative Narrative Physical Exam: Podiatry Physical Exam Results - Labs Lab/Micro Results: Lab Results-Last 24 Hours 10/12/23 10/12/23 10/12/23 Range/Units 04:54 04:54 18:35 WBC (4.23-9.07) x10^3/uL RBC (4.63-6.08) x10^6/uL Hgb (13.7-17.5) g/dL Hct (40.1-51.0) % MCV (79.0-92.2) fL MCH (25.7-32.2) pg MCHC (32.3-36.5) g/dL RDW (11.6-14.4) % Plt Count (163-337) x10^3/uL MPV (9.4-12.4) fL Gran % (34.0-67.9) % Immature Gran % (Auto) (0.001-0.429) % Nucleat RBC Rel Count (0.00-0.2) % Eos # (Auto) (0.04-0.54) x10^3/uL Immature Gran # (Auto) (0.001-0.031) x10^3u/L Absolute Lymphs (auto) (1.32-3.57) x10^3/uL Absolute Monos (auto) (0.30-0.82) x10^3/uL Absolute Nucleated RBC (0.00-0.012) x10^3u/L Lymphocytes % (21.8-53.1) % Monocytes % (5.3-12.2) % Eosinophils % (0.8-7.0) % Basophils % (0.2-1.2) % Absolute Granulocytes (1.78-5.38) x10^3/uL Basophils # (0.01-0.08) x10^3/uL pO2/FiO2 Ratio 21.0 % VBG pH 7.43 H (7.32-7.42) VBG pCO2 at Pat Temp 30 L (42-55) mm/Hg VBG pO2 at Pat Temp 39 (25-40) mm/Hg VBG HCO3 19.9 L (22-28) meq/L VBG O2 Sat (Huseyin) 68.3 L (95-100) VBG Base Excess -3.6 L (-2.0-2.0) VBG Hemoglobin 10.9 VBG Carboxyhemoglobin 2.3 (0.0-6.9) % T HGB POC Potassium 3.3 L (3.5-5.1) Sodium (135-145) mmol/L Potassium (3.5-5.1) mmol/L Chloride (98-107) mmol/L Carbon Dioxide (22-30) mmol/L Anion Gap (5-15) MEQ/L BUN (9-20) mg/dL Creatinine (0.66-1.25) mg/dL Estimated GFR ML/MIN Glucose (74-106) mg/dL POC Glucometer (74 to 106) mg/dL Hemoglobin A1c (4.5-6.0) % Lactic Acid 2.7 H (0.4-2.0) Calcium (8.4-10.2) mg/dL Magnesium (1.6-2.3) mg/dL Total Bilirubin (0.2-1.3) mg/dL AST (17-59) U/L ALT (0-50) U/L Alkaline Phosphatase (38-126) U/L Serum Total Protein (6.3-8.2) g/dL Albumin (3.5-5.0) g/dL Prealbumin (17.6-36.0) mg/dL Procalcitonin (0.030-0.080) ng/mL Urine Color Yellow (Yellow) Urine Appearance Clear (Clear) Urine pH 6.0 (4.6-8.0) Ur Specific [place] 1.010 (1.005-1.030) Urine Protein 30 (Negative) Urine Glucose (UA) Negative (Negative) mg/dL Urine Ketones Negative (Negative) Urine Blood Negative (Negative) Urine Nitrite Positive A (Negative) Urine Bilirubin Negative (Negative) Urine Urobilinogen 0.2 (0.2) mg/dL Ur Leukocyte Esterase Small A (Negative) U Hyaline Cast (Auto) NONE SEEN (0-2) /LPF Urine Microscopic RBC 0-2 (0-5) /HPF Urine Microscopic WBC 21-50 A (0-5) /HPF Ur Epithelial Cells None Seen (None Seen) /HPF Urine Bacteria None Seen (None Seen) /HPF Urine Culture Reflexed YES (NO) Ur Random Creatinine 47.7 MG/DL U Random Total Protein 65 H (0-12) mg/dL Urine Sodium 46 (30-90) mmol/L 10/12/23 10/12/23 10/12/23 Range/Units 18:50 18:50 18:50 WBC 14.1 H (4.23-9.07) x10^3/uL RBC 4.23 L (4.63-6.08) x10^6/uL Hgb 10.1 L (13.7-17.5) g/dL Hct 33.0 L (40.1-51.0) % MCV 78.0 L (79.0-92.2) fL MCH 23.9 L (25.7-32.2) pg MCHC 30.6 L (32.3-36.5) g/dL RDW 16.6 H (11.6-14.4) % Plt Count 618 H (163-337) x10^3/uL MPV 9.3 L (9.4-12.4) fL Gran % 78.4 H (34.0-67.9) % Immature Gran % (Auto) 2.1 H (0.001-0.429) % Nucleat RBC Rel Count 0.0 (0.00-0.2) % Eos # (Auto) 0.17 (0.04-0.54) x10^3/uL Immature Gran # (Auto) 0.30 H (0.001-0.031) x10^3u/L Absolute Lymphs (auto) 1.58 (1.32-3.57) x10^3/uL Absolute Monos (auto) 0.96 H (0.30-0.82) x10^3/uL Absolute Nucleated RBC 0.00 (0.00-0.012) x10^3u/L Lymphocytes % 11.2 L (21.8-53.1) % Monocytes % 6.8 (5.3-12.2) % Eosinophils % 1.2 (0.8-7.0) % Basophils % 0.3 (0.2-1.2) % Absolute Granulocytes 11.01 H (1.78-5.38) x10^3/uL Basophils # 0.04 (0.01-0.08) x10^3/uL pO2/FiO2 Ratio % VBG pH (7.32-7.42) VBG pCO2 at Pat Temp (42-55) mm/Hg VBG pO2 at Pat Temp (25-40) mm/Hg VBG HCO3 (22-28) meq/L VBG O2 Sat (Huseyin) (95-100) VBG Base Excess (-2.0-2.0) VBG Hemoglobin VBG Carboxyhemoglobin (0.0-6.9) % T HGB POC Potassium (3.5-5.1) Sodium 137 (135-145) mmol/L Potassium 2.9 L* (3.5-5.1) mmol/L Chloride 106 (98-107) mmol/L Carbon Dioxide 19 L (22-30) mmol/L Anion Gap 14.4 (5-15) MEQ/L BUN 19 (9-20) mg/dL Creatinine 1.37 H (0.66-1.25) mg/dL Estimated GFR 57.6 ML/MIN Glucose 138 H (74-106) mg/dL POC Glucometer (74 to 106) mg/dL Hemoglobin A1c (4.5-6.0) % Lactic Acid (0.4-2.0) Calcium 8.4 (8.4-10.2) mg/dL Magnesium (1.6-2.3) mg/dL Total Bilirubin 0.50 (0.2-1.3) mg/dL AST 64 H (17-59) U/L ALT 41 (0-50) U/L Alkaline Phosphatase 256 H (38-126) U/L Serum Total Protein 6.5 (6.3-8.2) g/dL Albumin 3.1 L (3.5-5.0) g/dL Prealbumin (17.6-36.0) mg/dL Procalcitonin 0.590 H (0.030-0.080) ng/mL Urine Color (Yellow) Urine Appearance (Clear) Urine pH (4.6-8.0) Ur Specific [place] (1.005-1.030) Urine Protein (Negative) Urine Glucose (UA) (Negative) mg/dL Urine Ketones (Negative) Urine Blood (Negative) Urine Nitrite (Negative) Urine Bilirubin (Negative) Urine Urobilinogen (0.2) mg/dL Ur Leukocyte Esterase (Negative) U Hyaline Cast (Auto) (0-2) /LPF Urine Microscopic RBC (0-5) /HPF Urine Microscopic WBC (0-5) /HPF Ur Epithelial Cells (None Seen) /HPF Urine Bacteria (None Seen) /HPF Urine Culture Reflexed (NO) Ur Random Creatinine MG/DL U Random Total Protein (0-12) mg/dL Urine Sodium (30-90) mmol/L 10/12/23 10/12/23 10/13/23 Range/Units 18:50 21:54 05:02 WBC (4.23-9.07) x10^3/uL RBC (4.63-6.08) x10^6/uL Hgb (13.7-17.5) g/dL Hct (40.1-51.0) % MCV (79.0-92.2) fL MCH (25.7-32.2) pg MCHC (32.3-36.5) g/dL RDW (11.6-14.4) % Plt Count (163-337) x10^3/uL MPV (9.4-12.4) fL Gran % (34.0-67.9) % Immature Gran % (Auto) (0.001-0.429) % Nucleat RBC Rel Count (0.00-0.2) % Eos # (Auto) (0.04-0.54) x10^3/uL Immature Gran # (Auto) (0.001-0.031) x10^3u/L Absolute Lymphs (auto) (1.32-3.57) x10^3/uL Absolute Monos (auto) (0.30-0.82) x10^3/uL Absolute Nucleated RBC (0.00-0.012) x10^3u/L Lymphocytes % (21.8-53.1) % Monocytes % (5.3-12.2) % Eosinophils % (0.8-7.0) % Basophils % (0.2-1.2) % Absolute Granulocytes (1.78-5.38) x10^3/uL Basophils # (0.01-0.08) x10^3/uL pO2/FiO2 Ratio % VBG pH (7.32-7.42) VBG pCO2 at Pat Temp (42-55) mm/Hg VBG pO2 at Pat Temp (25-40) mm/Hg VBG HCO3 (22-28) meq/L VBG O2 Sat (Huseyin) (95-100) VBG Base Excess (-2.0-2.0) VBG Hemoglobin VBG Carboxyhemoglobin (0.0-6.9) % T HGB POC Potassium (3.5-5.1) Sodium (135-145) mmol/L Potassium (3.5-5.1) mmol/L Chloride (98-107) mmol/L Carbon Dioxide (22-30) mmol/L Anion Gap (5-15) MEQ/L BUN (9-20) mg/dL Creatinine (0.66-1.25) mg/dL Estimated GFR ML/MIN Glucose (74-106) mg/dL POC Glucometer 155 H (74 to 106) mg/dL Hemoglobin A1c (4.5-6.0) % Lactic Acid 1.6 (0.4-2.0) Calcium (8.4-10.2) mg/dL Magnesium (1.6-2.3) mg/dL Total Bilirubin (0.2-1.3) mg/dL AST (17-59) U/L ALT (0-50) U/L Alkaline Phosphatase (38-126) U/L Serum Total Protein (6.3-8.2) g/dL Albumin (3.5-5.0) g/dL Prealbumin 7.01 L (17.6-36.0) mg/dL Procalcitonin (0.030-0.080) ng/mL Urine Color (Yellow) Urine Appearance (Clear) Urine pH (4.6-8.0) Ur Specific [place] (1.005-1.030) Urine Protein (Negative) Urine Glucose (UA) (Negative) mg/dL Urine Ketones (Negative) Urine Blood (Negative) Urine Nitrite (Negative) Urine Bilirubin (Negative) Urine Urobilinogen (0.2) mg/dL Ur Leukocyte Esterase (Negative) U Hyaline Cast (Auto) (0-2) /LPF Urine Microscopic RBC (0-5) /HPF Urine Microscopic WBC (0-5) /HPF Ur Epithelial Cells (None Seen) /HPF Urine Bacteria (None Seen) /HPF Urine Culture Reflexed (NO) Ur Random Creatinine MG/DL U Random Total Protein (0-12) mg/dL Urine Sodium (30-90) mmol/L 10/13/23 10/13/23 10/13/23 Range/Units 05:40 05:40 05:40 WBC 13.0 H (4.23-9.07) x10^3/uL RBC 3.98 L (4.63-6.08) x10^6/uL Hgb 9.6 L (13.7-17.5) g/dL Hct 31.9 L (40.1-51.0) % MCV 80.2 (79.0-92.2) fL MCH 24.1 L (25.7-32.2) pg MCHC 30.1 L (32.3-36.5) g/dL RDW 16.7 H (11.6-14.4) % Plt Count 535 H (163-337) x10^3/uL MPV 9.6 (9.4-12.4) fL Gran % 76.5 H (34.0-67.9) % Immature Gran % (Auto) 1.9 H (0.001-0.429) % Nucleat RBC Rel Count 0.0 (0.00-0.2) % Eos # (Auto) 0.19 (0.04-0.54) x10^3/uL Immature Gran # (Auto) 0.25 H (0.001-0.031) x10^3u/L Absolute Lymphs (auto) 1.48 (1.32-3.57) x10^3/uL Absolute Monos (auto) 1.07 H (0.30-0.82) x10^3/uL Absolute Nucleated RBC 0.00 (0.00-0.012) x10^3u/L Lymphocytes % 11.4 L (21.8-53.1) % Monocytes % 8.2 (5.3-12.2) % Eosinophils % 1.5 (0.8-7.0) % Basophils % 0.5 (0.2-1.2) % Absolute Granulocytes 9.94 H (1.78-5.38) x10^3/uL Basophils # 0.07 (0.01-0.08) x10^3/uL pO2/FiO2 Ratio % VBG pH (7.32-7.42) VBG pCO2 at Pat Temp (42-55) mm/Hg VBG pO2 at Pat Temp (25-40) mm/Hg VBG HCO3 (22-28) meq/L VBG O2 Sat (Huseyin) (95-100) VBG Base Excess (-2.0-2.0) VBG Hemoglobin VBG Carboxyhemoglobin (0.0-6.9) % T HGB POC Potassium (3.5-5.1) Sodium 139 (135-145) mmol/L Potassium 3.3 L (3.5-5.1) mmol/L Chloride 112 H (98-107) mmol/L Carbon Dioxide 18 L (22-30) mmol/L Anion Gap 12.4 (5-15) MEQ/L BUN 18 (9-20) mg/dL Creatinine 1.32 H (0.66-1.25) mg/dL Estimated GFR 60.2 ML/MIN Glucose 144 H (74-106) mg/dL POC Glucometer (74 to 106) mg/dL Hemoglobin A1c 6.56 H (4.5-6.0) % Lactic Acid (0.4-2.0) Calcium 8.2 L (8.4-10.2) mg/dL Magnesium 2.0 (1.6-2.3) mg/dL Total Bilirubin 0.70 (0.2-1.3) mg/dL AST 37 (17-59) U/L ALT 29 (0-50) U/L Alkaline Phosphatase 208 H (38-126) U/L Serum Total Protein 6.0 L (6.3-8.2) g/dL Albumin 2.7 L (3.5-5.0) g/dL Prealbumin (17.6-36.0) mg/dL Procalcitonin (0.030-0.080) ng/mL Urine Color (Yellow) Urine Appearance (Clear) Urine pH (4.6-8.0) Ur Specific [place] (1.005-1.030) Urine Protein (Negative) Urine Glucose (UA) (Negative) mg/dL Urine Ketones (Negative) Urine Blood (Negative) Urine Nitrite (Negative) Urine Bilirubin (Negative) Urine Urobilinogen (0.2) mg/dL Ur Leukocyte Esterase (Negative) U Hyaline Cast (Auto) (0-2) /LPF Urine Microscopic RBC (0-5) /HPF Urine Microscopic WBC (0-5) /HPF Ur Epithelial Cells (None Seen) /HPF Urine Bacteria (None Seen) /HPF Urine Culture Reflexed (NO) Ur Random Creatinine MG/DL U Random Total Protein (0-12) mg/dL Urine Sodium (30-90) mmol/L 10/13/23 10/13/23 10/13/23 Range/Units 07:30 11:04 11:19 WBC (4.23-9.07) x10^3/uL RBC (4.63-6.08) x10^6/uL Hgb (13.7-17.5) g/dL Hct (40.1-51.0) % MCV (79.0-92.2) fL MCH (25.7-32.2) pg MCHC (32.3-36.5) g/dL RDW (11.6-14.4) % Plt Count (163-337) x10^3/uL MPV (9.4-12.4) fL Gran % (34.0-67.9) % Immature Gran % (Auto) (0.001-0.429) % Nucleat RBC Rel Count (0.00-0.2) % Eos # (Auto) (0.04-0.54) x10^3/uL Immature Gran # (Auto) (0.001-0.031) x10^3u/L Absolute Lymphs (auto) (1.32-3.57) x10^3/uL Absolute Monos (auto) (0.30-0.82) x10^3/uL Absolute Nucleated RBC (0.00-0.012) x10^3u/L Lymphocytes % (21.8-53.1) % Monocytes % (5.3-12.2) % Eosinophils % (0.8-7.0) % Basophils % (0.2-1.2) % Absolute Granulocytes (1.78-5.38) x10^3/uL Basophils # (0.01-0.08) x10^3/uL pO2/FiO2 Ratio % VBG pH (7.32-7.42) VBG pCO2 at Pat Temp (42-55) mm/Hg VBG pO2 at Pat Temp (25-40) mm/Hg VBG HCO3 (22-28) meq/L VBG O2 Sat (Huseyin) (95-100) VBG Base Excess (-2.0-2.0) VBG Hemoglobin VBG Carboxyhemoglobin (0.0-6.9) % T HGB POC Potassium (3.5-5.1) Sodium 137 (135-145) mmol/L Potassium 3.3 L (3.5-5.1) mmol/L Chloride 111 H (98-107) mmol/L Carbon Dioxide 17 L (22-30) mmol/L Anion Gap 12.9 (5-15) MEQ/L BUN 17 (9-20) mg/dL Creatinine 1.34 H (0.66-1.25) mg/dL Estimated GFR 59.2 ML/MIN Glucose 151 H (74-106) mg/dL POC Glucometer 127 H 130 H (74 to 106) mg/dL Hemoglobin A1c (4.5-6.0) % Lactic Acid (0.4-2.0) Calcium 8.1 L (8.4-10.2) mg/dL Magnesium (1.6-2.3) mg/dL Total Bilirubin 0.60 (0.2-1.3) mg/dL AST 40 (17-59) U/L ALT 28 (0-50) U/L Alkaline Phosphatase 208 H (38-126) U/L Serum Total Protein 5.8 L (6.3-8.2) g/dL Albumin 2.6 L (3.5-5.0) g/dL Prealbumin (17.6-36.0) mg/dL Procalcitonin (0.030-0.080) ng/mL Urine Color (Yellow) Urine Appearance (Clear) Urine pH (4.6-8.0) Ur Specific [place] (1.005-1.030) Urine Protein (Negative) Urine Glucose (UA) (Negative) mg/dL Urine Ketones (Negative) Urine Blood (Negative) Urine Nitrite (Negative) Urine Bilirubin (Negative) Urine Urobilinogen (0.2) mg/dL Ur Leukocyte Esterase (Negative) U Hyaline Cast (Auto) (0-2) /LPF Urine Microscopic RBC (0-5) /HPF Urine Microscopic WBC (0-5) /HPF Ur Epithelial Cells (None Seen) /HPF Urine Bacteria (None Seen) /HPF Urine Culture Reflexed (NO) Ur Random Creatinine MG/DL U Random Total Protein (0-12) mg/dL Urine Sodium (30-90) mmol/L Accuchecks Date 10/13/23 Date 10/13/23 - Radiology Impressions Radiology Exams & Impressions: Radiology Procedures Category Date Time Status ARTERIAL UNILAT/LTD LOWER EXT [US] Routine Exams 10/13/23 08:00 Ordered FOOT (MINIMUM 3 VIEWS) Stat Exams 10/13/23 08:50 Completed HEAD WITHOUT CONTRAST [CT] Stat Exams 10/12/23 18:11 Completed VENOUS UNILAT/LIMITED EXTREMIT [US] Stat Exams 10/12/23 18:07 Completed Assessment/Plan (1) Cellulitis of right lower extremity Current Visit: Yes Status: Acute Assessment & Plan: 3+ pitting edema to the RLE Will plan for compression therapy. wound likely source of luekocytosis at this time. Currently on Vancomycin/Zosyn Code(s): L03.115 - CELLULITIS OF RIGHT LOWER LIMB (2) Hx of left BKA Current Visit: Yes Status: Acute Assessment & Plan: Patient frustrations impacting current decision making. States 8 surgeries in 8 months with this limb only to have BKA. Lengthy discussion held in regards to outcomes if persued to the RLE. Code(s): Z89.512 - ACQUIRED ABSENCE OF LEFT LEG BELOW KNEE (3) Leukocytosis Current Visit: Yes Status: Acute Qualifiers: Leukocytosis type: unspecified Qualified Code(s): D72.829 - Elevated white blood cell count, unspecified Assessment & Plan: Vancomycin/zosyn combo currently Follow trend Code(s): D72.829 - ELEVATED WHITE BLOOD CELL COUNT, UNSPECIFIED (4) Osteomyelitis of right foot Current Visit: Yes Status: Acute Assessment & Plan: Will plan for MRI right foot w contrast tomorrow in order to better assess extent Wound debridement preformed at bedside demonstrating purulent drainage and a positive probe to bone. Decision making with follow discussion regarding MRI results Open TMA with later closure and plan to correct for rearfoot cavus vs BKA. Code(s): M86.9 - OSTEOMYELITIS, UNSPECIFIED (5) Type 2 diabetes mellitus Current Visit: Yes Status: Acute Assessment & Plan: Controlled (6) UTI (urinary tract infection) Current Visit: Yes Status: Acute Code(s): N39.0 - URINARY TRACT INFECTION, SITE NOT SPECIFIED
[2023-10-13] MEDS: Klor Con PO SCH (15:48)
[2023-10-13 17:13] LABS: ALBUMIN 2.7 g/dL (3.5-5.0); ANION GAP 11.7 MEQ/L (5-15); BILIRUBIN,TOTAL 0.6 mg/dL (0.2-1.3); Calcium 8.3 mg/dL (8.4-10.2); Creatinine 1 1.4 mg/dL (0.66-1.25); EST GLOMERULAR FILTRATION RATE 56.1 ML/MIN; Potassium 3.3 mmol/L (3.5-5.1); Total Protein 5.9 g/dL (6.3-8.2)
[2023-10-13] MEDS ORDERED: SODIUM BICARBONATE 50 MEQ/50 ML ABBOJECT IV ONE (19:29)
[2023-10-13] MEDS ORDERED: Dextrose 5%/Water IV Soln. 1000 ML 0 ML IV ONE (19:29)
[2023-10-13] MEDS ORDERED: Dextrose 5%/Water IV Soln. 1000 ML 1,000 ML IV ONE (20:36)
[2023-10-13] MEDS: Sodium Bicarbonate 50 MEQ/50 ML VIAL*** 150 MEQ in Dextrose 5%/Water IV Soln. 1000 ML 1... IV SCH (21:04)
[2023-10-13] MEDS: Sodium Bicarbonate 50 MEQ/50 ML VIAL IV ONE (22:05)
[2023-10-13] MEDS ORDERED: Klor Con ONE (23:06)
[2023-10-14 00:48] LABS: ALBUMIN 2.7 g/dL (3.5-5.0); ANION GAP 12.3 MEQ/L (5-15); BILIRUBIN,TOTAL 0.7 mg/dL (0.2-1.3); Calcium 8.2 mg/dL (8.4-10.2); Creatinine 1 1.34 mg/dL (0.66-1.25); EST GLOMERULAR FILTRATION RATE 59.2 ML/MIN; Potassium 3.4 mmol/L (3.5-5.1); Total Protein 6.1 g/dL (6.3-8.2)
[2023-10-14 05:23] LABS: Absolute Neutrophil Ct (ANC) 7.43 x10^3/uL (1.78-5.38); BASOPHIL % 0.6 % (0.2-1.2); Basophil (Absolute #) 0.06 x10^3/uL (0.01-0.08); Eosinophil (Absolute #) 0.21 x10^3/uL (0.04-0.54); Hematocrit 28.3 % (40.1-51.0); Hemoglobin 8.7 g/dL (13.7-17.5); IMMATURE GRAN # 0.17 x10^3u/L (0.001-0.031); IMMATURE GRAN % 1.6 % (0.001-0.429); Lymphocyte (Absolute #) 1.69 x10^3/uL (1.32-3.57); Lymphocytes % 16.3 % (21.8-53.1); Mean Corpuscular Hgb Concent. 30.7 g/dL (32.3-36.5); Mean Platelet Volume 9.3 fL (9.4-12.4); Monocyte (Absolute #) 0.84 x10^3/uL (0.30-0.82); Monocytes % 8.1 % (5.3-12.2); Neutrophil % 71.4 % (34.0-67.9); Platelet Count 528 x10^3/uL (163-337); Red Blood Count 3.63 x10^6/uL (4.63-6.08); White Blood Count 10.4 x10^3/uL (4.23-9.07)
[2023-10-14 05:46] LABS: ALBUMIN 2.6 g/dL (3.5-5.0); ANION GAP 9.3 MEQ/L (5-15); BILIRUBIN,TOTAL 0.6 mg/dL (0.2-1.3); Calcium 8.2 mg/dL (8.4-10.2); Creatinine 1 1.26 mg/dL (0.66-1.25); EST GLOMERULAR FILTRATION RATE 63.7 ML/MIN; Potassium 3.4 mmol/L (3.5-5.1); Total Protein 5.9 g/dL (6.3-8.2)
[2023-10-14] MEDS: TROUGH DRUG LEVELS IJ ONE (07:24)
[2023-10-14] MEDS: Klor Con PO SCH (08:05)
[2023-10-14 08:06] VITALS: RESP 17
--- NOTE | 2023-10-14 11:15 | PCM.NOTE ---
Date and Time: 10/14/23 1109 Subjective Assessment: 10/14/23 Mr. OTILIA CHAPIN is a 63 year old male with a past medical history significant for hypertension, diabetes and PAD status post L BKA. He presented with complaints of RLE swelling for about two weeks on 10/11 to ER. He took oral antibiotics without much improvement and came back with pain and redness around his R foot/leg. He is unable to recall if he had any trauma or triggers to the infection. No fever/chills. No drainage from his foot/leg. Venous doppler negative for DVT. Podiatry consulted for RLE edema with quarter sized open wound to posterior/lateral right foot. RLE with 4+ pitting edema. Right foot xray showing destructive osteolytic bony lesion seen involving the base of the 5th metatarsal with periosteal reaction around the 4th and 5th metatarsal bone shafts and related soft tissue sewlling, suggesting osteomyelitis. Patient follows with Dr. Villalobos in [place] (podiatry). Current treatment with vanc/zosyn. MRI ordered for today by podiatry. After MRI podiatry to do compression thearpy on RLE. K+ 3.4 today and replaced. Wound cultures and UC pending. BC x2 negative. Pt denies CP, SOB, abd. pain, N/V/D. He is irritable about being here. - Review of Systems Constitutional: No Fever, No Chills Eyes: No Symptoms Ears, Nose, & Throat: No Symptoms Respiratory: No Cough, No Short Of Breath Cardiac: Edema (RLE), No Chest Pain, No Syncope Abdominal/Gastrointestinal: No Abdominal Pain, No Nausea, No Vomiting, No Diarrhea Genitourinary Symptoms: No Dysuria Musculoskeletal: No Back Pain, No Neck Pain Skin: Skin Lesions ( RLE edematous with quarter sized open wound to posterior/lateral right foot.), No Rash Neurological: No Dizziness, No Focal Weakness, No Sensory Changes Psychological: No Symptoms Endocrine: No Symptoms Hematologic/Lymphatic: No Symptoms Immunological/Allergic: No Symptoms Objective Exam General Appearance: no apparent distress, alert, obese Neurologic Exam: alert, oriented x 3, cooperative, normal mood/affect, nml cerebellar function, sensation nml, agitation (- irritable), No motor deficits Skin Exam: normal color, warm, dry, other (RLE edematous with quarter sized open wound to posterior/lateral right foot.) Wound Assessment: Skin/Wound Assessment Wound/Incision Assessment Start: 10/12/23 20:56 Text: Status: Active Freq: Q6H Protocol: Document 10/14/23 08:00 EK (Rec: 10/14/23 08:41 EK [id number]) Wound/Incision Assessment Right Lateral Foot Wound Assessment Shift Assessment Wound Type ulceration Dressing Status Dry & Intact Comment DRESSING C/D/I Wound Photo Photo Taken No Eye Exam: PERRL, EOMI, eyes nml inspection Ears, Nose, Throat Exam: normal ENT inspection, pharynx normal, moist mucous membranes Neck Exam: normal inspection, non-tender, supple, full range of motion Respiratory Exam: normal breath sounds, lungs clear, No respiratory distress Cardiovascular Exam: regular rate/rhythm, normal heart sounds, edema (+ 3 pitting RLE) Gastrointestinal/Abdomen Exam: soft, No tenderness, No mass Extremity Exam: normal inspection, normal range of motion Back Exam: normal inspection, normal range of motion, No CVA tenderness, No vertebral tenderness Male Genitalia Exam: deferred Rectal Exam: deferred Objective Data Vital Signs: Vital Signs - 24 hr Temp Pulse Resp BP Pulse Ox 10/14/23 08:00 97.5 F 64 17 124/73 99 10/14/23 04:00 98.0 F 71 18 126/75 95 10/13/23 23:49 98.1 F 63 21 114/65 93 L 10/13/23 19:54 97.8 F 70 20 132/70 94 L 10/13/23 16:00 97.4 F 70 18 127/64 96 Pain Assessment - Last Documented Pain Intensity 0 Pain Scale Used [facility] Intake and Output: Intake & Output 10/11/23 10/12/23 10/13/23 10/14/23 11:59 11:59 11:59 11:59 Intake Total 1638 2421 Output Total 850 1275 Balance 788 1146 Weight 114.1 kg Lab Results: Lab Results-Last 24 Hours 10/13/23 10/13/23 10/13/23 Range/Units 11:04 11:19 11:40 WBC (4.23-9.07) x10^3/uL RBC (4.63-6.08) x10^6/uL Hgb (13.7-17.5) g/dL Hct (40.1-51.0) % MCV (79.0-92.2) fL MCH (25.7-32.2) pg MCHC (32.3-36.5) g/dL RDW (11.6-14.4) % Plt Count (163-337) x10^3/uL MPV (9.4-12.4) fL Gran % (34.0-67.9) % Immature Gran % (Auto) (0.001-0.429) % Nucleat RBC Rel Count (0.00-0.2) % Eos # (Auto) (0.04-0.54) x10^3/uL Immature Gran # (Auto) (0.001-0.031) x10^3u/L Absolute Lymphs (auto) (1.32-3.57) x10^3/uL Absolute Monos (auto) (0.30-0.82) x10^3/uL Absolute Nucleated RBC (0.00-0.012) x10^3u/L Lymphocytes % (21.8-53.1) % Monocytes % (5.3-12.2) % Eosinophils % (0.8-7.0) % Basophils % (0.2-1.2) % Absolute Granulocytes (1.78-5.38) x10^3/uL Basophils # (0.01-0.08) x10^3/uL Sodium 137 (135-145) mmol/L Potassium 3.3 L (3.5-5.1) mmol/L Chloride 111 H (98-107) mmol/L Carbon Dioxide 17 L (22-30) mmol/L Anion Gap 12.9 (5-15) MEQ/L BUN 17 (9-20) mg/dL Creatinine 1.34 H (0.66-1.25) mg/dL Estimated GFR 59.2 ML/MIN Glucose 151 H (74-106) mg/dL POC Glucometer 130 H (74 to 106) mg/dL Calcium 8.1 L (8.4-10.2) mg/dL Magnesium 2.1 (1.6-2.3) mg/dL Total Bilirubin 0.60 (0.2-1.3) mg/dL AST 40 (17-59) U/L ALT 28 (0-50) U/L Alkaline Phosphatase 208 H (38-126) U/L Serum Total Protein 5.8 L (6.3-8.2) g/dL Albumin 2.6 L (3.5-5.0) g/dL Vancomycin Trough (10-20) ug/mL 10/13/23 10/13/23 10/13/23 Range/Units 15:55 17:00 21:45 WBC (4.23-9.07) x10^3/uL RBC (4.63-6.08) x10^6/uL Hgb (13.7-17.5) g/dL Hct (40.1-51.0) % MCV (79.0-92.2) fL MCH (25.7-32.2) pg MCHC (32.3-36.5) g/dL RDW (11.6-14.4) % Plt Count (163-337) x10^3/uL MPV (9.4-12.4) fL Gran % (34.0-67.9) % Immature Gran % (Auto) (0.001-0.429) % Nucleat RBC Rel Count (0.00-0.2) % Eos # (Auto) (0.04-0.54) x10^3/uL Immature Gran # (Auto) (0.001-0.031) x10^3u/L Absolute Lymphs (auto) (1.32-3.57) x10^3/uL Absolute Monos (auto) (0.30-0.82) x10^3/uL Absolute Nucleated RBC (0.00-0.012) x10^3u/L Lymphocytes % (21.8-53.1) % Monocytes % (5.3-12.2) % Eosinophils % (0.8-7.0) % Basophils % (0.2-1.2) % Absolute Granulocytes (1.78-5.38) x10^3/uL Basophils # (0.01-0.08) x10^3/uL Sodium 140 (135-145) mmol/L Potassium 3.3 L (3.5-5.1) mmol/L Chloride 114 H (98-107) mmol/L Carbon Dioxide 17 L (22-30) mmol/L Anion Gap 11.7 (5-15) MEQ/L BUN 16 (9-20) mg/dL Creatinine 1.40 H (0.66-1.25) mg/dL Estimated GFR 56.1 ML/MIN Glucose 127 H (74-106) mg/dL POC Glucometer 124 H 176 H (74 to 106) mg/dL Calcium 8.3 L (8.4-10.2) mg/dL Magnesium (1.6-2.3) mg/dL Total Bilirubin 0.60 (0.2-1.3) mg/dL AST 49 (17-59) U/L ALT 30 (0-50) U/L Alkaline Phosphatase 211 H (38-126) U/L Serum Total Protein 5.9 L (6.3-8.2) g/dL Albumin 2.7 L (3.5-5.0) g/dL Vancomycin Trough (10-20) ug/mL 10/14/23 10/14/23 10/14/23 Range/Units 00:33 05:17 05:17 WBC 10.4 H (4.23-9.07) x10^3/uL RBC 3.63 L (4.63-6.08) x10^6/uL Hgb 8.7 L (13.7-17.5) g/dL Hct 28.3 L (40.1-51.0) % MCV 78.0 L (79.0-92.2) fL MCH 24.0 L (25.7-32.2) pg MCHC 30.7 L (32.3-36.5) g/dL RDW 17.0 H (11.6-14.4) % Plt Count 528 H (163-337) x10^3/uL MPV 9.3 L (9.4-12.4) fL Gran % 71.4 H (34.0-67.9) % Immature Gran % (Auto) 1.6 H (0.001-0.429) % Nucleat RBC Rel Count 0.0 (0.00-0.2) % Eos # (Auto) 0.21 (0.04-0.54) x10^3/uL Immature Gran # (Auto) 0.17 H (0.001-0.031) x10^3u/L Absolute Lymphs (auto) 1.69 (1.32-3.57) x10^3/uL Absolute Monos (auto) 0.84 H (0.30-0.82) x10^3/uL Absolute Nucleated RBC 0.00 (0.00-0.012) x10^3u/L Lymphocytes % 16.3 L (21.8-53.1) % Monocytes % 8.1 (5.3-12.2) % Eosinophils % 2.0 (0.8-7.0) % Basophils % 0.6 (0.2-1.2) % Absolute Granulocytes 7.43 H (1.78-5.38) x10^3/uL Basophils # 0.06 (0.01-0.08) x10^3/uL Sodium 142 141 (135-145) mmol/L Potassium 3.4 L 3.4 L (3.5-5.1) mmol/L Chloride 112 H 113 H (98-107) mmol/L Carbon Dioxide 21 L 22 (22-30) mmol/L Anion Gap 12.3 9.3 (5-15) MEQ/L BUN 14 12 (9-20) mg/dL Creatinine 1.34 H 1.26 H (0.66-1.25) mg/dL Estimated GFR 59.2 63.7 ML/MIN Glucose 122 H 142 H (74-106) mg/dL POC Glucometer (74 to 106) mg/dL Calcium 8.2 L 8.2 L (8.4-10.2) mg/dL Magnesium (1.6-2.3) mg/dL Total Bilirubin 0.70 0.60 (0.2-1.3) mg/dL AST 52 41 (17-59) U/L ALT 32 28 (0-50) U/L Alkaline Phosphatase 215 H 204 H (38-126) U/L Serum Total Protein 6.1 L 5.9 L (6.3-8.2) g/dL Albumin 2.7 L 2.6 L (3.5-5.0) g/dL Vancomycin Trough (10-20) ug/mL 10/14/23 10/14/23 Range/Units 05:17 07:37 WBC (4.23-9.07) x10^3/uL RBC (4.63-6.08) x10^6/uL Hgb (13.7-17.5) g/dL Hct (40.1-51.0) % MCV (79.0-92.2) fL MCH (25.7-32.2) pg MCHC (32.3-36.5) g/dL RDW (11.6-14.4) % Plt Count (163-337) x10^3/uL MPV (9.4-12.4) fL Gran % (34.0-67.9) % Immature Gran % (Auto) (0.001-0.429) % Nucleat RBC Rel Count (0.00-0.2) % Eos # (Auto) (0.04-0.54) x10^3/uL Immature Gran # (Auto) (0.001-0.031) x10^3u/L Absolute Lymphs (auto) (1.32-3.57) x10^3/uL Absolute Monos (auto) (0.30-0.82) x10^3/uL Absolute Nucleated RBC (0.00-0.012) x10^3u/L Lymphocytes % (21.8-53.1) % Monocytes % (5.3-12.2) % Eosinophils % (0.8-7.0) % Basophils % (0.2-1.2) % Absolute Granulocytes (1.78-5.38) x10^3/uL Basophils # (0.01-0.08) x10^3/uL Sodium (135-145) mmol/L Potassium (3.5-5.1) mmol/L Chloride (98-107) mmol/L Carbon Dioxide (22-30) mmol/L Anion Gap (5-15) MEQ/L BUN (9-20) mg/dL Creatinine (0.66-1.25) mg/dL Estimated GFR ML/MIN Glucose (74-106) mg/dL POC Glucometer 132 H (74 to 106) mg/dL Calcium (8.4-10.2) mg/dL Magnesium (1.6-2.3) mg/dL Total Bilirubin (0.2-1.3) mg/dL AST (17-59) U/L ALT (0-50) U/L Alkaline Phosphatase (38-126) U/L Serum Total Protein (6.3-8.2) g/dL Albumin (3.5-5.0) g/dL Vancomycin Trough 13.66 (10-20) ug/mL Radiology Exams: Radiology Procedures Category Date Time Status ARTERIAL UNILAT/LTD LOWER EXT [US] Routine Exams 10/14/23 08:00 Taken FOOT (MINIMUM 3 VIEWS) Stat Exams 10/13/23 08:50 Completed HEAD WITHOUT CONTRAST [CT] Stat Exams 10/12/23 18:11 Completed MRI LOWER EXT WITH CONTRAST [MRI] Routine Exams 10/14/23 08:00 Ordered VENOUS UNILAT/LIMITED EXTREMIT [US] Stat Exams 10/12/23 18:07 Completed Multi-Disciplinary Progress Notes: Multi-Disciplinary Progress Notes 10/14/23 08:32 Pharmacy Note by Richy Yusuf Vancomycin trough good at 13.66. Creat. improving. Keep same dose. Initialized on 10/14/23 08:32 - END OF NOTE Assessment/Plan (1) Osteomyelitis of right foot Current Visit: Yes Status: Acute Assessment & Plan: -Podiatry consulted - reviewed note and agree with plan of care -Continue vanc/zosyn -Pt follows with podiatry op Dr. Villalobos in [place] - recently prescribed Levaquin x 21 day on 09/10/23 -US negative for DVT -Right foot xray showing destructive osteolytic bony lesion seen involving the base of the 5th metatarsal with periosteal reaction around the 4th and 5th metatarsal bone shafts and related soft tissue swelling, suggesting osteomyelitis -wound culture of right posterior foot open wound - MRI pending - BC x2 negative Code(s): M86.9 - OSTEOMYELITIS, UNSPECIFIED (2) Cellulitis of right lower extremity Current Visit: Yes Status: Acute Assessment & Plan: -Continue vanc/zosyn - ?cellulitis vs venous stasis dermatitis -Podiatry consulted - compression dressing to be done after MRI today Code(s): L03.115 - CELLULITIS OF RIGHT LOWER LIMB (3) UTI (urinary tract infection) Current Visit: Yes Status: Acute Assessment & Plan: - IV antibiotics - UC pending Code(s): N39.0 - URINARY TRACT INFECTION, SITE NOT SPECIFIED (4) Hx of left BKA Current Visit: Yes Status: Chronic Assessment & Plan: -with prosthesis Code(s): Z89.512 - ACQUIRED ABSENCE OF LEFT LEG BELOW KNEE (5) Hypertensive chronic kidney disease with stage 1 through stage 4 chronic kidney disease, or unspecified chronic kidney disease Current Visit: Yes Status: Chronic Assessment & Plan: - Blood pressure under reasonable control - Low Na+ diet - Antihypertensives prn - Monitor blood pressure readings Code(s): I12.9 - HYPERTENSIVE CHRONIC KIDNEY DISEASE W STG 1-4/UNSP CHR KDNY (6) Hypokalemia Current Visit: Yes Status: Acute Assessment & Plan: - K+ 3.4- replaced- trend Code(s): E87.6 - HYPOKALEMIA (7) Type 2 diabetes mellitus Current Visit: Yes Status: Acute Qualifiers: Diabetes mellitus mcc insulin use: with mcc use Diabetes mellitus complication status: with circulatory complication Diabetes mellitus complication detail: with other circulatory complications Qualified Code(s): E11.59 - Type 2 diabetes mellitus with other circulatory complications; Z79.4 - shelter (current) use of insulin Assessment & Plan: -A1c 6.56 -No home medications - patient states he was taking Mounjaro -Accuchecks, SSI (8) Acute kidney injury (nontraumatic) Current Visit: Yes Status: Acute Assessment & Plan: - Creat 1.26- improved- baseline 1.06 - Follow I/Os Code(s): N17.9 - ACUTE KIDNEY FAILURE, UNSPECIFIED (9) Headache Current Visit: Yes Status: Resolved Assessment & Plan: - resolved - Confusion likely 2:2 UTI- resolved - CT head 10/12/23 IMPRESSION: Unremarkable non-contrast enhanced CT study for the brain. No evidence of post-traumatic lesion. Code(s): R51.9 - HEADACHE, UNSPECIFIED (10) Obesity (BMI 30.0-34.9) Current Visit: Yes Status: Chronic Assessment & Plan: - Advised ADA diet and exercise control VTE: none as pt may need surgery PPI: Rachnad Next of KIN: Gerri Thompsonbins [phone] D/C plan: 2-3 days Code(s): E66.9 - OBESITY, UNSPECIFIED
--- NOTE | 2023-10-14 11:42 | XRAY ---
Indication: Peripheral artery disease. Cellulitis. Two-dimensional sonogram and color Doppler imaging major arteries right leg performed. Comparison: None Visualized common femoral, deep femoral, superficial femoral, and popliteal arteries are widely patent with multiphasic arterial waveforms. Minimal arteriosclerotic disease in dorsal pedal and mild disease in the posterior tibial arteries both with monophasic arterial waveforms. Right arm brachial pressure not obtained due to indwelling IV. Left arm brachial pressure is 117. Right ankle pressure is 133. Right ankle-brachial index is 1.13, normal. Impression: Minimal/mild arteriosclerotic disease in lower leg. Negative for critical stenosis/obstruction. Right KVNG is normal.
[2023-10-14 12:16] VITALS: PULSE 65; TEMP 97.6
--- NOTE | 2023-10-14 15:33 | XRAY ---
Indication: Lateral mid foot ulcer. Sagittal, coronal, and axial MRI right mid to forefoot performed using pre and post T1, T2, and STIR sequences. 20 cc Dotarem contrast used. Comparison: None There is ferromagnetic artifact from incompletely visualized ankle hardware. Visualized foot demonstrates diffuse subcutaneous and deep soft tissue swelling with enhancement favoring cellulitis. There is marked bony edema signal and enhancement involving all visualized tarsal bones, entire 5th metatarsal, majority mid to proximal 3rd/4th metatarsals, and base 2nd metatarsal all favoring osteomyelitis. Base 5th metatarsal is absent either postsurgical versus osseous destructive process. In the expected region base 5th metatarsal, there is a irregular enhancing fluid collection measuring at least 2.8 x 1.5 x 2.1 cm worrisome for abscess. No other focal solid/cystic soft tissue mass. Impression: 1. Ferromagnetic artifact from ankle hardware. 2. Diffuse subcutaneous and deep soft tissue cellulitis. Absent base 5h metatarsal either postsurgical versus osseous destructive process. Osseous destructive process is more likely given the radiograph appearance with presence of enhancing abscess as detailed. 3. Diffuse tarsometatarsal osteomyelitis as detailed.
[2023-10-14] MEDS ORDERED: Klor Con ONE (16:57)
[2023-10-14 17:06] VITALS: BP 128/63; O2SAT 96
--- NOTE | 2023-10-14 17:11 | PCM.DS ---
Discharge Summary Date of Admission: 10/12/23 20:50 Date of Discharge: 10/14/23 Admitting Physician: JULIA RIVERA MD Consults: Consults on Case 10/13/23 12:12 Consult Podiatry ROUTINE Primary Care Provider: LEODAN URIARTE Allergies Allergies Sulfa (Sulfonamide Antibiotics) Allergy (Mild, Verified 10/12/23 17:12) Rash morphine Adverse Reaction (Mild, Verified 10/12/23 17:12) Nausea Hospital Summary - Hospital Course Hospital Course: 10/14/23 Mr. OTILIA CHAPIN is a 63 year old male with a past medical history significant for hypertension, diabetes and PAD status post L BKA. He presented with complaints of RLE swelling for about two weeks on 10/11 to ER. He took oral antibiotics without much improvement and came back with pain and redness around his R foot/leg. He is unable to recall if he had any trauma or triggers to the infection. No fever/chills. No drainage from his foot/leg. Venous doppler negative for DVT. Podiatry consulted for RLE edema with quarter sized open wound to posterior/lateral right foot. RLE with 4+ pitting edema. Right foot xray showing destructive osteolytic bony lesion seen involving the base of the 5th metatarsal with periosteal reaction around the 4th and 5th metatarsal bone shafts and related soft tissue sewlling, suggesting osteomyelitis. Patient f ollows with Dr. Villalobos in [place] (podiatry). Current treatment with vanc/zosyn. MRI ordered for today by podiatry. After MRI podiatry to do compression thearpy on RLE. K+ 3.4 today and replaced. Wound cultures and UC pending. BC x2 negative. Pt denies CP, SOB, abd. pain, N/V/D. He is irritable ab out being here. Podiatry came and discussed MRI with pt today. Pt wants to f/u with his poditrist OP. Dr. Amaro agreeable and will send OP antibiotics. He is also willing to collaborate with his jig and fixture repairer Dr. Villalobos. The pt does not want to stay and podiatry is ok with this. Will continue OP antibiotics per podiatry and follow urine culture OP. - Vitals & Intake/Output Vital Signs: Vital Signs Temperature 97.6 F 10/14/23 16:00 Pulse Rate 65 10/14/23 16:00 Respiratory Rate 17 10/14/23 16:00 Blood Pressure 128/63 10/14/23 16:00 O2 Sat by Pulse Oximetry 96 10/14/23 16:00 Intake & Output: Intake & Output 10/12/23 10/13/23 10/14/23 10/15/23 11:59 11:59 11:59 11:59 Intake Total 1638 2541 120 Output Total 850 1275 Balance 788 1266 120 Weight 114.1 kg - Lab Result Diagrams: 10/14/23 05:17 10/14/23 05:17 Lab Results-Last 24 Hrs: Lab Results-Last 24 Hours 10/13/23 10/13/23 10/14/23 Range/Units 17:00 21:45 00:33 WBC (4.23-9.07) x10^3/uL RBC (4.63-6.08) x10^6/uL Hgb (13.7-17.5) g/dL Hct (40.1-51.0) % MCV (79.0-92.2) fL MCH (25.7-32.2) pg MCHC (32.3-36.5) g/dL RDW (11.6-14.4) % Plt Count (163-337) x10^3/uL MPV (9.4-12.4) fL Gran % (34.0-67.9) % Immature Gran % (Auto) (0.001-0.429) % Nucleat RBC Rel Count (0.00-0.2) % Eos # (Auto) (0.04-0.54) x10^3/uL Immature Gran # (Auto) (0.001-0.031) x10^3u/L Absolute Lymphs (auto) (1.32-3.57) x10^3/uL Absolute Monos (auto) (0.30-0.82) x10^3/uL Absolute Nucleated RBC (0.00-0.012) x10^3u/L Lymphocytes % (21.8-53.1) % Monocytes % (5.3-12.2) % Eosinophils % (0.8-7.0) % Basophils % (0.2-1.2) % Absolute Granulocytes (1.78-5.38) x10^3/uL Basophils # (0.01-0.08) x10^3/uL Sodium 140 142 (135-145) mmol/L Potassium 3.3 L 3.4 L (3.5-5.1) mmol/L Chloride 114 H 112 H (98-107) mmol/L Carbon Dioxide 17 L 21 L (22-30) mmol/L Anion Gap 11.7 12.3 (5-15) MEQ/L BUN 16 14 (9-20) mg/dL Creatinine 1.40 H 1.34 H (0.66-1.25) mg/dL Estimated GFR 56.1 59.2 ML/MIN Glucose 127 H 122 H (74-106) mg/dL POC Glucometer 176 H (74 to 106) mg/dL Calcium 8.3 L 8.2 L (8.4-10.2) mg/dL Total Bilirubin 0.60 0.70 (0.2-1.3) mg/dL AST 49 52 (17-59) U/L ALT 30 32 (0-50) U/L Alkaline Phosphatase 211 H 215 H (38-126) U/L Serum Total Protein 5.9 L 6.1 L (6.3-8.2) g/dL Albumin 2.7 L 2.7 L (3.5-5.0) g/dL Vancomycin Trough (10-20) ug/mL 10/14/23 10/14/23 10/14/23 Range/Units 05:17 05:17 05:17 WBC 10.4 H (4.23-9.07) x10^3/uL RBC 3.63 L (4.63-6.08) x10^6/uL Hgb 8.7 L (13.7-17.5) g/dL Hct 28.3 L (40.1-51.0) % MCV 78.0 L (79.0-92.2) fL MCH 24.0 L (25.7-32.2) pg MCHC 30.7 L (32.3-36.5) g/dL RDW 17.0 H (11.6-14.4) % Plt Count 528 H (163-337) x10^3/uL MPV 9.3 L (9.4-12.4) fL Gran % 71.4 H (34.0-67.9) % Immature Gran % (Auto) 1.6 H (0.001-0.429) % Nucleat RBC Rel Count 0.0 (0.00-0.2) % Eos # (Auto) 0.21 (0.04-0.54) x10^3/uL Immature Gran # (Auto) 0.17 H (0.001-0.031) x10^3u/L Absolute Lymphs (auto) 1.69 (1.32-3.57) x10^3/uL Absolute Monos (auto) 0.84 H (0.30-0.82) x10^3/uL Absolute Nucleated RBC 0.00 (0.00-0.012) x10^3u/L Lymphocytes % 16.3 L (21.8-53.1) % Monocytes % 8.1 (5.3-12.2) % Eosinophils % 2.0 (0.8-7.0) % Basophils % 0.6 (0.2-1.2) % Absolute Granulocytes 7.43 H (1.78-5.38) x10^3/uL Basophils # 0.06 (0.01-0.08) x10^3/uL Sodium 141 (135-145) mmol/L Potassium 3.4 L (3.5-5.1) mmol/L Chloride 113 H (98-107) mmol/L Carbon Dioxide 22 (22-30) mmol/L Anion Gap 9.3 (5-15) MEQ/L BUN 12 (9-20) mg/dL Creatinine 1.26 H (0.66-1.25) mg/dL Estimated GFR 63.7 ML/MIN Glucose 142 H (74-106) mg/dL POC Glucometer (74 to 106) mg/dL Calcium 8.2 L (8.4-10.2) mg/dL Total Bilirubin 0.60 (0.2-1.3) mg/dL AST 41 (17-59) U/L ALT 28 (0-50) U/L Alkaline Phosphatase 204 H (38-126) U/L Serum Total Protein 5.9 L (6.3-8.2) g/dL Albumin 2.6 L (3.5-5.0) g/dL Vancomycin Trough 13.66 (10-20) ug/mL 10/14/23 10/14/23 10/14/23 Range/Units 07:37 11:59 17:00 WBC (4.23-9.07) x10^3/uL RBC (4.63-6.08) x10^6/uL Hgb (13.7-17.5) g/dL Hct (40.1-51.0) % MCV (79.0-92.2) fL MCH (25.7-32.2) pg MCHC (32.3-36.5) g/dL RDW (11.6-14.4) % Plt Count (163-337) x10^3/uL MPV (9.4-12.4) fL Gran % (34.0-67.9) % Immature Gran % (Auto) (0.001-0.429) % Nucleat RBC Rel Count (0.00-0.2) % Eos # (Auto) (0.04-0.54) x10^3/uL Immature Gran # (Auto) (0.001-0.031) x10^3u/L Absolute Lymphs (auto) (1.32-3.57) x10^3/uL Absolute Monos (auto) (0.30-0.82) x10^3/uL Absolute Nucleated RBC (0.00-0.012) x10^3u/L Lymphocytes % (21.8-53.1) % Monocytes % (5.3-12.2) % Eosinophils % (0.8-7.0) % Basophils % (0.2-1.2) % Absolute Granulocytes (1.78-5.38) x10^3/uL Basophils # (0.01-0.08) x10^3/uL Sodium (135-145) mmol/L Potassium (3.5-5.1) mmol/L Chloride (98-107) mmol/L Carbon Dioxide (22-30) mmol/L Anion Gap (5-15) MEQ/L BUN (9-20) mg/dL Creatinine (0.66-1.25) mg/dL Estimated GFR ML/MIN Glucose (74-106) mg/dL POC Glucometer 132 H 101 138 H (74 to 106) mg/dL Calcium (8.4-10.2) mg/dL Total Bilirubin (0.2-1.3) mg/dL AST (17-59) U/L ALT (0-50) U/L Alkaline Phosphatase (38-126) U/L Serum Total Protein (6.3-8.2) g/dL Albumin (3.5-5.0) g/dL Vancomycin Trough (10-20) ug/mL Micro Results-Entire Visit: Microbiology 10/12/23 18:50 Blood Culture - Preliminary Blood 10/12/23 18:41 Blood Culture - Preliminary Blood Accuchecks Date 10/14/23 Date 10/14/23 Date 10/14/23 Time 17:05 Time 12:15 Time 07:47 - Radiology Exams Ordered Rad Exams-Entire Visit: Radiology Procedures Category Date Time Status ARTERIAL UNILAT/LTD LOWER EXT [US] Routine Exams 10/14/23 08:00 Completed FOOT (MINIMUM 3 VIEWS) Stat Exams 10/13/23 08:50 Completed HEAD WITHOUT CONTRAST [CT] Stat Exams 10/12/23 18:11 Completed MRI LOWER EXT WITH CONTRAST [MRI] Routine Exams 10/14/23 08:00 Completed VENOUS UNILAT/LIMITED EXTREMIT [US] Stat Exams 10/12/23 18:07 Completed - Procedures and Test Procedures and Tests throughout Hospitalization: Therapy Orders & Screens 10/12/23 21:52 OT Screen per Nursing Assess ONCE Comment: Protocol Order Physician Instructions: Greater than 3 points order OT Admission Screening Reason For Exam: Triggered on Admission Diagnosis: cellulitis Open Wound/Cellutlitis/Pressure Ulcers: Yes Acute Fx/ORIF/Change in wt bearing status: No Severe MUSCULOSKELETAL pain: No ADL Dysfunction: No Acute CVA w/Hemiparesis/Hemiplegia: No Decreased Functional Mobility/Strength: No Sprain/Strain: No Acute Post-op Mobility Dysfunction: No Total Points: 5 PT Screen per Nursing Assess ONCE Comment: Protocol Order Physician Instructions: Greater than 3 points order PT Admission Screenin Reason For Exam: Triggered on Admission Diagnosis: cellulitis Open Wound/Cellutlitis/Pressure Ulcers: Yes Acute Fx/ORIF/Change in wt bearing status: No Severe MUSCULOSKELETAL pain: No ADL Dysfunction: No Acute CVA w/Hemiparesis/Hemiplegia: No Decreased Functional Mobility/Strength: No Sprain/Strain: No Acute Post-op Mobility Dysfunction: No Total Points: 5 Discharge Exam General Appearance: no apparent distress, alert Neurologic Exam: alert, oriented x 3, cooperative, normal mood/affect, nml cerebellar function, sensation nml, No motor deficits Eye Exam: PERRL, EOMI, eyes nml inspection Ears, Nose, Throat Exam: normal ENT inspection, pharynx normal, moist mucous membranes Neck Exam: normal inspection, non-tender, supple, full range of motion Respiratory Exam: normal breath sounds, lungs clear, No respiratory distress Cardiovascular Exam: regular rate/rhythm, normal heart sounds Gastrointestinal/Abdomen Exam: soft, No tenderness, No mass Male Genitalia Exam: deferred Rectal Exam: deferred Back Exam: normal inspection, normal range of motion, No CVA tenderness, No vertebral tenderness Extremity Exam: normal inspection, normal range of motion Skin Exam: normal color, warm, dry, other (RLE edematous with quarter sized open wound to posterior/lateral right foot.) Wound Assessment: Skin/Wound Assessment Wound/Incision Assessment Start: 10/12/23 20:56 Text: Status: Active Freq: Q6H Protocol: Document 10/14/23 14:00 EK (Rec: 10/14/23 14:51 EK [id number]) Wound/Incision Assessment Right Lateral Foot Wound Assessment Shift Assessment Wound Type ulceration Dressing Status Dry & Intact Comment DRESSING C/D/I Final Diagnosis/Problem List - Final Discharge Diagnosis/Problem (1) Osteomyelitis of right foot Current Visit: Yes Status: Acute Code(s): M86.9 - OSTEOMYELITIS, UNSPECIFIED (2) Cellulitis of right lower extremity Current Visit: Yes Status: Acute Code(s): L03.115 - CELLULITIS OF RIGHT LOWER LIMB (3) UTI (urinary tract infection) Current Visit: Yes Status: Acute Code(s): N39.0 - URINARY TRACT INFECTION, SITE NOT SPECIFIED (4) Hx of left BKA Current Visit: Yes Status: Chronic Code(s): Z89.512 - ACQUIRED ABSENCE OF LEFT LEG BELOW KNEE (5) Hypertensive chronic kidney disease with stage 1 through stage 4 chronic kidney disease, or unspecified chronic kidney disease Current Visit: Yes Status: Chronic Code(s): I12.9 - HYPERTENSIVE CHRONIC KIDNEY DISEASE W STG 1-4/UNSP CHR KDNY (6) Hypokalemia Current Visit: Yes Status: Acute Code(s): E87.6 - HYPOKALEMIA (7) Type 2 diabetes mellitus Current Visit: Yes Status: Acute (8) Acute kidney injury (nontraumatic) Current Visit: Yes Status: Acute Code(s): N17.9 - ACUTE KIDNEY FAILURE, UNSPECIFIED (9) Headache Current Visit: Yes Status: Resolved Code(s): R51.9 - HEADACHE, UNSPECIFIED (10) Obesity (BMI 30.0-34.9) Current Visit: Yes Status: Chronic Assessment & Plan: (1) Osteomyelitis of right foot Current Visit: Yes Status: Acute Assessment & Plan: -Podiatry consulted - reviewed note and agree with plan of care -Continue vanc/zosyn -Pt follows with podiatry op Dr. Villalobos in [place] - recently prescribed Levaquin x 21 day on 09/10/23 -US negative for DVT -Right foot xray showing destructive osteolytic bony lesion seen involving the base of the 5th metatarsal with periosteal reaction around the 4th and 5th metatarsal bone shafts and related soft tissue swelling, suggesting osteomyelitis -wound culture of right posterior foot open wound - MRI pending - BC x2 negative 10/13 -MRI RLE Impression: 1. Ferromagnetic artifact from ankle hardware. 2. Diffuse subcutaneous and deep soft tissue cellulitis. Absent base 5h metatarsal either postsurgical versus osseous destructive process. Osseous destructive process is more likely given the radiograph appearance with presence of enhancing abscess as detailed. 3. Diffuse tarsometatarsal osteomyelitis as detailed. - OP antibiotics per podiatry - Pt refuses to stay and wants to f/u with his jig and fixture repairer OP- Dr. Villalobos. Code(s): M86.9 - OSTEOMYELITIS, UNSPECIFIED (2) Cellulitis of right lower extremity Current Visit: Yes Status: Acute Assessment & Plan: -Continue vanc/zosyn - ?cellulitis vs venous stasis dermatitis -Podiatry consulted - compression dressing to be done after MRI today Code(s): L03.115 - CELLULITIS OF RIGHT LOWER LIMB (3) UTI (urinary tract infection) Current Visit: Yes Status: Acute Assessment & Plan: - IV antibiotics - UC pending- will continue to follow OP Code(s): N39.0 - URINARY TRACT INFECTION, SITE NOT SPECIFIED (4) Hx of left BKA Current Visit: Yes Status: Chronic Assessment & Plan: -with prosthesis Code(s): Z89.512 - ACQUIRED ABSENCE OF LEFT LEG BELOW KNEE (5) Hypertensive chronic kidney disease with stage 1 through stage 4 chronic kidney disease, or unspecified chronic kidney disease Current Visit: Yes Status: Chronic Assessment & Plan: - Blood pressure under reasonable control - Low Na+ diet - Antihypertensives prn - Monitor blood pressure readings Code(s): I12.9 - HYPERTENSIVE CHRONIC KIDNEY DISEASE W STG 1-4/UNSP CHR KDNY (6) Hypokalemia Current Visit: Yes Status: Acute Assessment & Plan: - K+ 3.4- replaced- trend Code(s): E87.6 - HYPOKALEMIA (7) Type 2 diabetes mellitus Current Visit: Yes Status: Acute Qualifiers: Diabetes mellitus snf insulin use: with termite control servicer use Diabetes mellit complication status: with circulatory complication Diabetes mellitus c omplication detail: with other circulatory complications Qualified Code(s): E11.59 - Type 2 diabetes mellitus with other circulatory complications; Z79.4 - meterman (current) use of insulin Assessment & Plan: -A1c 6.56 -No home medications - patient states he was taking Mounjaro -Accuchecks, SSI (8) Acute kidney injury (nontraumatic) Current Visit: Yes Status: Acute Assessment & Plan: - Creat 1.26- improved- baseline 1.06 - Follow I/Os Code(s): N17.9 - ACUTE KIDNEY FAILURE, UNSPECIFIED (9) Headache Current Visit: Yes Status: Resolved Assessment & Plan: - resolved - Confusion likely 2:2 UTI- resolved - CT head 10/12/23 IMPRESSION: Unremarkable non-contrast enhanced CT study for the brain. No evidence of post-traumatic lesion. Code(s): R51.9 - HEADACHE, UNSPECIFIED (10) Obesity (BMI 30.0-34.9) Current Visit: Yes Status: Chronic Assessment & Plan: - Advised ADA diet and exercise control Code(s): E66.9 - OBESITY, UNSPECIFIED - Discharge Discharge Date: 10/14/23 Disposition: Home, Self-Care Condition: Fair Prescriptions: Continue Pregabalin 300 mg PO BID Follow up with: LEODAN URIARTE NP [Primary Care Provider] -
--- NOTE | 2023-10-15 17:01 | PCM.NOTE ---
Date and Time: 10/15/23 1656 Subjective Assessment: At bedside. eager for d/c. Physical Exam - Narrative Narrative Physical Exam: Podiatry Physical Exam Objective Data Vital Signs: Pain Assessment - Last Documented Pain Intensity 0 Pain Scale Used FLACC Intake and Output: Intake & Output 10/13/23 10/14/23 10/15/23 10/16/23 11:59 11:59 11:59 11:59 Intake Total 1638 2541 120 Output Total 850 1275 Balance 788 1266 120 Weight 114.1 kg Lab Results: Lab Results-Last 24 Hours 10/14/23 10/14/23 Range/Units 17:00 17:25 Potassium 3.7 (3.5-5.1) mmol/L POC Glucometer 138 H (74 to 106) mg/dL Radiology Exams: Radiology Procedures Category Date Time Status ARTERIAL UNILAT/LTD LOWER EXT [US] Routine Exams 10/14/23 08:00 Completed MRI LOWER EXT WITH CONTRAST [MRI] Routine Exams 10/14/23 08:00 Completed Assessment/Plan (1) Cellulitis of right lower extremity Status: Acute Assessment & Plan: 3+ pitting edema to the RLE Will plan for compression therapy. wound likely source of luekocytosis at this time. Currently on Vancomycin/Zosyn Code(s): L03.115 - CELLULITIS OF RIGHT LOWER LIMB (2) Hx of left BKA Status: Chronic Assessment & Plan: Patient frustrations impacting current decision making. States 8 surgeries in 8 months with this limb only to have BKA. Lengthy discussion held in regards to outcomes if perused to the RLE. Code(s): Z89.512 - ACQUIRED ABSENCE OF LEFT LEG BELOW KNEE (3) Leukocytosis Status: Acute Qualifiers: Leukocytosis type: unspecified Qualified Code(s): D72.829 - Elevated white blood cell count, unspecified Assessment & Plan: MRI obtained suggestive of OM of lateral midfoot with complete errosion of the lateral aspect of the 4th and 5th metatarsal bases. Highly suggestive of OM. Debridement preformed at bedside Unna boot applied for venous insufficiency of the right lower extremity as well as localized edema. Vancomycin/zosyn combo currently Follow trend Code(s): D72.829 - ELEVATED WHITE BLOOD CELL COUNT, UNSPECIFIED (4) Osteomyelitis of right foot Status: Acute Assessment & Plan: Wound debridement preformed at bedside demonstrating purulent drainage and a positive probe to bone. unna boot applied patient would like to proceed with treatment with Dr. Villalobos/ Dr. Obregon on D/c as they are familiar with his case. Ok to d/c on oral abx. Will update Dr. Villalobos on hospital stay and findings. Code(s): M86.9 - OSTEOMYELITIS, UNSPECIFIED (5) Type 2 diabetes mellitus Status: Acute Qualifiers: Diabetes mellitus rodent exterminator insulin use: with rodent exterminator use Diabetes mellitus complication status: with circulatory complication Diabetes mellitus complication detail: with other circulatory complications Qualified Code(s): E11.59 - Type 2 diabetes mellitus with other circulatory complications; Z79.4 - care home (current) use of insulin (6) UTI (urinary tract infection) Status: Acute Code(s): N39.0 - URINARY TRACT INFECTION, SITE NOT SPECIFIED
== END 2023-10-14 18:54 | disposition home or self-care (01) ==
LOC: ED 16:39 → MED SURG 20:50
PROVIDERS: ADMIT Internal Medicine Nephrology; ATTEND Internal Medicine Nephrology
DX: M86.9 Osteomyelitis, unspecified (principal); L03.115 Cellulitis of right lower limb; N39.0 Urinary tract infection, site not specified; D72.829 Elevated white blood cell count, unspecified; Z89.512 Acquired absence of left leg below knee; E11.22 Type 2 diabetes mellitus with diabetic chronic kidney disease; I12.9 Hypertensive chronic kidney disease with stage 1 through stage 4 chronic kidney disease, or unspecified chronic kidney disease; N18.9 Chronic kidney disease, unspecified; N17.9 Acute kidney failure, unspecified; E87.6 Hypokalemia; R51.9 Headache, unspecified; E66.9 Obesity, unspecified; Z79.4 Long term (current) use of insulin; Z79.899 Other long term (current) drug therapy
CPT/HCPCS: 11042; 29580; 36000; 36415; 70450; 73630; 73719; 80053; 80202; 81001; 82570; 82805; 82947; 83036; 83605; 83735; 84132; 84134; 84145; 84156; 84300; 85025; 87040; 87070; 87077; 87086; 87186; 93926; 93971; 96365; 96368; 99223; 99285; G0378; Q3014; J1650; J2543; A9270-GY; J3370